=== PATIENT | male | born 1980 | race African-American/Black ===

== ENCOUNTER 2017-06-06 08:08 | Emergency (ER) | payer SELFPAY ==
[2017-06-06 08:10] VITALS: BP 160/98; PULSE 84; RESP 18; TEMP 98.9; O2SAT 99
[2017-06-06] MEDS ORDERED: SULFAMETHOXAZOLE-TRIMETHOPRIM DS 800-160 MG TAB PO ONE (08:30)
[2017-06-06] MEDS ORDERED: ACETAMINOPHEN/HYDROcodone 325 MG/5 MG TAB PO ONE (08:30)
[2017-06-06] MEDS ORDERED: LIDOCAINE HCL 1% 50 ML VIAL INFIL ONE (08:30)
[2017-06-06] MEDS ORDERED: CEPH-460 PO (08:33)
[2017-06-06] MEDS ORDERED: BACT800T5 PO (08:33)
--- NOTE | 2017-06-06 08:33 | PD ---
HPI Chief Complaint: Skin Problem Time Seen by Provider: 08:21 Travel History International Travel<30 days: No Contact w/Intl Traveler<30days: No Traveled to known affect area: No History of Present Illness HPI 36-year-old male presents to the emergency department complaining of multiple abscesses on the bilateral groin and right leg. Patient states that he has had these for approximately 1 week but they have not gone away. Patient states that his pain is moderate to severe and nonradiating. Patient denies fever or chills. Denies history of illicit or IV drug use. Denies chronic medical issues or medication use. Says he has had one abscess previously and does not know why he has these abscesses today. States that he is sexually active. Denies sex worker use. States he is heterosexual and is familiar with his sexual partners. Patient denies penile discharge or urinary discomfort. Denies penile lesions. Denies history of IV drug use. PFSH Social History Tobacco Use: No Allergies-Medications (Allergen,Severity, Reaction): Coded Allergies: No Known Allergies (Unverified , 06/06/17) Reported Meds & Prescriptions Reported Meds & Active Scripts Active Keflex (Cephalexin) 500 Mg Cap 500 Mg PO Q12H 10 Days Bactrim DS (Sulfamethoxazole-Trimethoprim) 800-160 Mg Tab 1 Tab PO BID Review of Systems Except as stated in HPI: all other systems reviewed are Neg Physical Exam Narrative GENERAL: Well-nourished, well-developed patient. SKIN: Focused skin assessment warm/dry. HEAD: Normocephalic. EYES: No scleral icterus. No injection or drainage. NECK: Supple, trachea midline. No JVD or lymphadenopathy. CARDIOVASCULAR: Regular rate and rhythm without murmurs, gallops, or rubs. RESPIRATORY: Breath sounds equal bilaterally. No accessory muscle use. GENITOURINARY: Circumcised. Testes descended bilaterally without evidence of rotation. No lesions or erythema. No urethral discharge. Left posterior leg -Measures about 1 cm in diameter. It is fluctuant but there no drainage. TTP. Area of erythema to surrounding 3 cm. There is a zone of inflammation around it but no lymphangitis. Right groin- 1 cm indurated mass mildly tender to palpation mildly fluctuant. No erythema. No edema., left groin- 2 cm round lesion indurated tender to palpation. No erythema. No edema. MUSCULOSKELETAL: No cyanosis, or edema. BACK: Nontender without obvious deformity. No CVA tenderness. Data Data Last Documented VS Vital Signs Date Time Temp Pulse Resp B/P (MAP) Pulse Ox O2 Delivery O2 Flow Rate FiO2 06/06/17 10:07 100 06/06/17 08:10 98.9 84 18 Orders Orders Acetamin-Hydrocod 325-5 Mg ([place] 5-325 (06/06/17 08:30) Lidocaine 1% Inj (50 Ml) (Xylocaine 1% I (06/06/17 08:30) Sulfamet-Trimeth Ds 800-160 Mg (Bactrim (06/06/17 08:30) Ed Discharge Order (06/06/17 09:44) [facility] Medical Decision Making Medical Screen Exam Complete: Yes Emergency Medical Condition: Yes Differential Diagnosis Abscess, cellulitis, erysipelas Narrative Course 36-year-old male presents to the emergency department complaining of multiple abscesses on the bilateral groin and right leg. Patient states that he has had these for approximately 1 week but they have not gone away. Patient states that his pain is moderate to severe and nonradiating. Patient denies fever or chills. Denies history of illicit or IV drug use. Denies chronic medical issues or medication use. Says he has had one abscess previously and does not know why he has these abscesses today. States that he is sexually active. Denies sex worker use. States he is heterosexual and is familiar with his sexual partners. Patient denies penile discharge or urinary discomfort. Denies penile lesions. Denies history of IV drug use. Vital signs stable Physical exam findings consistent with abscesses of the extremities. Incision and drainage performed today left posterior leg, right groin Antibiotics prescribed. Bactrim and hydrocodone administered in the emergency department today. Wound care discussed. There was consideration of an STI causing his abscesses today. Patient describes a sexual history as fairly responsible so I do not have a strong suspicion of VD. I asked patient to return in 2 days for wound check as he does not have a primary care physician and the lesions are in higher risk areas. In addition, there are 3 of concern. Patient states that he will return and will comply with the regimen. Return to the emergency department for worsening or persistent symptoms. Diagnosis Primary Impression: Abscess Referrals: Primary Care Physician Additional Instructions: Follow up with your primary care physician within 2-3 days. If your symptoms persist or worsen, return to the emergency department. Keep area clean and dry. He may remove the packing in 1-2 days. You may use [id number] triple antibiotic ointments for your wound Change dressings daily. Physical medication as prescribed If he developed increased redness, swelling, or pain return to the emergency department. Scripts Cephalexin (Keflex) 500 Mg Cap 500 MG PO Q12H for Infection for 10 Days, #20 CAP 0 Refills Prov: Rohith Yoon MD 06/06/17 Sulfamethoxazole-Trimethoprim (Bactrim DS) 800-160 Mg Tab 1 TAB PO BID for Infection, #20 TAB 0 Refills Prov: Rohith Yoon MD 06/06/17 Disposition: 01 DISCHARGE HOME Condition: Stable Elma Banerjee Jun 06, 2017 08:33
== END 2017-06-06 10:07 | disposition home or self-care (01) ==
LOC: NEPD 08:08
DX: L02.214 Cutaneous abscess of groin (principal); L02.415 Cutaneous abscess of right lower limb
CPT/HCPCS: 99284

== ENCOUNTER 2017-12-21 02:37 | Inpatient (IN) ==
--- NOTE | 2017-12-21 06:44 | ED ---
HPI General Chief complaint: Weakness Stated complaint: Medical/Evac Time Seen by Provider: 12/21/17 06:41 Source: patient History of Present Illness HPI narrative: The patient is a 37 year old male who presents to the [facility] emergency department with a history of chest pain, shortness of breath, tongue swelling, and bilateral knee pain since accidentally overdosing on Heroin at 4PM yesterday. He reports that his friend did CPR on him. No ambulance was called. He did not get Narcan. He did not go to a hospital. The patient reports feeling poorly since that time. He reports having bilateral knee pain and is unsure why. He denies any known trauma to his knees. He reports that he first used heroin 3 years ago, however he does not use it on a regular basis. He reports that he was having some back pain and that is why he used to yesterday. He reports that normally he has a history of abusing marijuana and cocaine. Related Data Home Medications Medication Instructions Recorded Confirmed No Known Home Medications 12/21/17 12/21/17 Allergies Allergy/AdvReac Type Severity Reaction Status Date / Time No Known Allergies Allergy Unverified 06/06/17 08:26 Review of Systems ROS Unobtainable All other systems reviewed negative except as stated in HPI Constitutional Denies fever(s) Eyes Denies change in vision ENT Denies headache(s) and Denies nasal congestion Cardiovascular Reports chest pain Respiratory Reports cough, Reports dyspnea and Reports dyspnea on exertion Gastrointestinal Denies abdominal pain, Reports diarrhea (x1- 2 days ago) and Reports vomiting ( x3) Genitourinary Denies difficulty urinating Musculoskeletal Denies myalgias Integumentary/Breasts Denies rash Neurologic Denies headache(s) and Reports weakness (generalized) Psychiatric Denies depression and Denies suicidal ideation Endocrine Denies polyuria Hematologic/Lymphatic Denies easy bruising PMFSH Medical History Medical History Medical history unknown (Acute) Surgical history unknown (Acute) No active medical problems (Acute) Surgical History Surgical History H/O knee surgery (Acute) Social History Social History Substance History: Active Abuse Second Hand Smoke Exposure: Yes Smoking Status: Current every day smoker Tobacco Type: Cigarettes Cigarettes Per Day: 7.5 How Often Do You Have a Drink Containing Alcohol: 2 to 4 times a month Substance Abuse Detail Heroin: Substance Use Status: Active Route Used Substance Abuse: Intravenously Immunization History Tetanus Immunization: Unsure Hx Influenza Vaccine This Season: No Exam HENMT Head: normocephalic and atraumatic Nose: no nasal discharge and no epistaxis Mouth: moist mucous membranes Eyes Sclera: normal sclerae Pupils: PERRL Neck Neck: trachea midline and no JVD Resp Effort & Inspection: no use of accessory muscles Auscultation: clear to auscultation bilaterally Cardio Rate: regular rate Rhythm: regular rhythm Heart Sounds: no murmurs GI Inspection: non-distended Palpation: soft, no hepatosplenomegaly and nontender Skin General: dry skin (warm) Neuro General: awake and other (drowsy although easily arousable to voice) Cranial Nerves: CN's II-XI intact bilaterally Speech: speech normal Motor: no movement abnormalities noted Sensory Exam: no sensory deficits noted Extrem General: normal to inspection, no clubbing, no cyanosis and no edema Right upper extremity: normal to inspection Left upper extremity: normal to inspection Right lower extremity: normal to inspection and knee (The patient has decreased range of motion with flexion. No ligament laxity. No crepitus or deformity. No effusion noted.) Details: normal to inspection and abnormal ROM Left lower extremity: normal to inspection and knee (The patient has decreased range of motion with flexion. There is no ligament laxity. No crepitus) Psych Mood: congruent mood Affect: normal affect Judgment: judgment good Course Hospital Course: During the course of the patient's emergency department visit, the patient's history, examination, and differential diagnosis were reviewed with the patient. The patient was placed on a compliance monitor with oximetry and frequent blood pressure monitoring. The patient had IV access obtained and blood work sent for analysis. The patient was initially provided normal saline IV fluids, Toradol 15 mg IV for pain. Initial Documented Vital Signs Temperature 98.4 F 12/21/17 02:44 Pulse Rate 72 12/21/17 02:44 Respiratory Rate 16 12/21/17 02:44 Blood Pressure 142/98 H 12/21/17 02:44 Pulse Oximetry 99 12/21/17 02:44 Last Documented Vital Signs Temperature 97.8 F 12/21/17 09:00 Pulse Rate 86 12/21/17 09:00 Respiratory Rate 17 12/21/17 09:00 Blood Pressure 138/90 12/21/17 09:00 Pulse Oximetry 99 12/21/17 09:00 Sign Out Sign Out Data: Patient Sign Out occurred on 12/21/17 at 07:28. Patient's care was discussed, and care was transferred from Rekha Mir MD to Loy Hooker MD. Sign Out Comment: The patient's case will be checked out to the oncoming emergency physician disposition the patient based on his workup. The patient has pending laboratory studies and imaging studies. Last updated by Rekha Mir MD at 12/21/17 07:27 Post-Handoff Eval: The patient was signed out to me by Dr. Mir at change of shift. Patient presented after he reported overdosing on heroin yesterday. Patient states that CPR was performed. He presents today with complaints of pain all over. Patient states he also feels generally weak. Patient's troponin is elevated. Patient's liver enzymes are also elevated. Elevation of troponins likely secondary to the CPR that was performed on him. Case was discussed with Dr. Bray, [facility] [place] [facility], who agrees with the admission. Patient will be trended. Further disposition will be per Dr. Bray. Medical Decision Making MDM Narrative Medical decision making narrative: The patient's diagnostic workup has been started. The patient's case will be checked out to the oncoming emergency physician to disposition the patient based on the conclusion of his workup. Differential Diagnosis Differential Diagnosis: Rib fracture, versus acute coronary syndrome, versus congestive heart failure, versus muscle strain, versus bacteremia Medical Records Medical records reviewed: Yes I reviewed the patient's medical records. Lab Data Result diagrams: 12/21/17 07:02 12/21/17 07:02 Lab Results 12/21/17 12/21/17 12/21/17 Range/Units 07:02 07:02 07:02 WBC 14.3 H (4.0-11.0) th/mm3 RBC 4.91 (4.50-5.90) mil/mm3 Hgb 15.1 (13.0-17.0) gm/dL Hct 46.2 (39.0-51.0) % MCV 94.2 (80.0-100.0) fL MCH 30.7 (27.0-34.0) pg MCHC 32.6 (32.0-36.0) % RDW 15.4 (11.6-17.2) % Plt Count 310 (150-450) th/mm3 MPV 7.9 (7.0-11.0) fL Neut % (Auto) 70.3 H (16.0-70.0) % Lymph % (Auto) 20.7 (9.0-44.0) % Faulk % (Auto) 7.1 (0.0-8.0) % Eos % (Auto) 1.1 (0.0-4.0) % Baso % (Auto) 0.8 (0.0-2.0) % Neut # (Auto) 10.0 H (1.8-7.7) th/mm3 Lymph # (Auto) 3.0 (1.0-4.8) th/mm3 Faulk # (Auto) 1.0 H (0.0-0.9) th/mm3 Eos # (Auto) 0.2 (0.0-0.4) th/mm3 Baso # (Auto) 0.1 (0.0-0.2) th/mm3 WBC Differential . Differential Comment Auto diff final PT 11.3 (9.8-11.6) sec INR 1.1 Ratio APTT 24.3 (24.3-30.1) sec Sodium 145 (136-145) meq/L Potassium 4.5 (3.5-5.1) meq/L Chloride 114 H (98-107) meq/L Carbon Dioxide 23.5 (21.0-32.0) meq/L Anion Gap 8 (5-15) meq/L BUN 10 (7-18) mg/dL Creatinine 0.98 (0.60-1.30) mg/dL Estimated GFR Greater than 89 (>89) mL/min POC Glucose (68-110) mg/dl Random Glucose 78 (74-106) mg/dL Calcium 7.1 L* (8.5-10.1) mg/dL Prot Corrected Calcium 7.4 L* (8.5-10.1) mg/dL Magnesium 2.0 (1.5-2.5) mg/dL Total Bilirubin 0.4 (0.2-1.0) mg/dL AST 139 H (15-37) U/L ALT 173 H (12-78) U/L Alkaline Phosphatase 52 (45-117) U/L Lactate Dehydrogenase 462 H (87-241) U/L Total Creatine Kinase 177 (39-308) U/L Troponin I 2.54 H* (0.02-0.05) ng/mL B-Natriuretic Peptide (0-100) pg/mL Total Protein 6.6 (6.4-8.2) g/dL Albumin 2.7 L (3.4-5.0) g/dL TSH 1.060 (0.358-3.740) uIU/mL Urine Color (Yellw/Straw) Urine Clarity (Clear) Urine pH (5.0-8.5) Ur Specific [place] (1.002-1.035) Urine Protein (Neg-Trace) mg/dL Urine Glucose (UA) (Negative) mg/dL Urine Ketones (Negative) mg/dL Urine Occult Blood (Negative) Urine Nitrate (Negative) Urine Bilirubin (Negative) Urine Urobilinogen (Less than 2) mg/dL Ur Leukocyte Esterase (Negative) Urine RBC (0-3) /hpf Urine WBC (0-5) /hpf Urine Mucus (Occasional) /lpf Micro UA Comment Urine Culture Comments Acetaminophen (10.0-30.0) mcg/mL Serum Alcohol Less than 3 (0-5) mg/dL 12/21/17 12/21/17 12/21/17 Range/Units 07:02 07:02 07:11 WBC (4.0-11.0) th/mm3 RBC (4.50-5.90) mil/mm3 Hgb (13.0-17.0) gm/dL Hct (39.0-51.0) % MCV (80.0-100.0) fL MCH (27.0-34.0) pg MCHC (32.0-36.0) % RDW (11.6-17.2) % Plt Count (150-450) th/mm3 MPV (7.0-11.0) fL Neut % (Auto) (16.0-70.0) % Lymph % (Auto) (9.0-44.0) % Faulk % (Auto) (0.0-8.0) % Eos % (Auto) (0.0-4.0) % Baso % (Auto) (0.0-2.0) % Neut # (Auto) (1.8-7.7) th/mm3 Lymph # (Auto) (1.0-4.8) th/mm3 Faulk # (Auto) (0.0-0.9) th/mm3 Eos # (Auto) (0.0-0.4) th/mm3 Baso # (Auto) (0.0-0.2) th/mm3 WBC Differential Differential Comment PT (9.8-11.6) sec INR Ratio APTT (24.3-30.1) sec Sodium (136-145) meq/L Potassium (3.5-5.1) meq/L Chloride (98-107) meq/L Carbon Dioxide (21.0-32.0) meq/L Anion Gap (5-15) meq/L BUN (7-18) mg/dL Creatinine (0.60-1.30) mg/dL Estimated GFR (>89) mL/min POC Glucose 86 (68-110) mg/dl Random Glucose (74-106) mg/dL Calcium (8.5-10.1) mg/dL Prot Corrected Calcium (8.5-10.1) mg/dL Magnesium (1.5-2.5) mg/dL Total Bilirubin (0.2-1.0) mg/dL AST (15-37) U/L ALT (12-78) U/L Alkaline Phosphatase (45-117) U/L Lactate Dehydrogenase (87-241) U/L Total Creatine Kinase (39-308) U/L Troponin I (0.02-0.05) ng/mL B-Natriuretic Peptide 27 (0-100) pg/mL Total Protein (6.4-8.2) g/dL Albumin (3.4-5.0) g/dL TSH (0.358-3.740) uIU/mL Urine Color (Yellw/Straw) Urine Clarity (Clear) Urine pH (5.0-8.5) Ur Specific [place] (1.002-1.035) Urine Protein (Neg-Trace) mg/dL Urine Glucose (UA) (Negative) mg/dL Urine Ketones (Negative) mg/dL Urine Occult Blood (Negative) Urine Nitrate (Negative) Urine Bilirubin (Negative) Urine Urobilinogen (Less than 2) mg/dL Ur Leukocyte Esterase (Negative) Urine RBC (0-3) /hpf Urine WBC (0-5) /hpf Urine Mucus (Occasional) /lpf Micro UA Comment Urine Culture Comments Acetaminophen Less than 2.0 L (10.0-30.0) mcg/mL Serum Alcohol (0-5) mg/dL 12/21/17 Range/Units 07:20 WBC (4.0-11.0) th/mm3 RBC (4.50-5.90) mil/mm3 Hgb (13.0-17.0) gm/dL Hct (39.0-51.0) % MCV (80.0-100.0) fL MCH (27.0-34.0) pg MCHC (32.0-36.0) % RDW (11.6-17.2) % Plt Count (150-450) th/mm3 MPV (7.0-11.0) fL Neut % (Auto) (16.0-70.0) % Lymph % (Auto) (9.0-44.0) % Faulk % (Auto) (0.0-8.0) % Eos % (Auto) (0.0-4.0) % Baso % (Auto) (0.0-2.0) % Neut # (Auto) (1.8-7.7) th/mm3 Lymph # (Auto) (1.0-4.8) th/mm3 Faulk # (Auto) (0.0-0.9) th/mm3 Eos # (Auto) (0.0-0.4) th/mm3 Baso # (Auto) (0.0-0.2) th/mm3 WBC Differential Differential Comment PT (9.8-11.6) sec INR Ratio APTT (24.3-30.1) sec Sodium (136-145) meq/L Potassium (3.5-5.1) meq/L Chloride (98-107) meq/L Carbon Dioxide (21.0-32.0) meq/L Anion Gap (5-15) meq/L BUN (7-18) mg/dL Creatinine (0.60-1.30) mg/dL Estimated GFR (>89) mL/min POC Glucose (68-110) mg/dl Random Glucose (74-106) mg/dL Calcium (8.5-10.1) mg/dL Prot Corrected Calcium (8.5-10.1) mg/dL Magnesium (1.5-2.5) mg/dL Total Bilirubin (0.2-1.0) mg/dL AST (15-37) U/L ALT (12-78) U/L Alkaline Phosphatase (45-117) U/L Lactate Dehydrogenase (87-241) U/L Total Creatine Kinase (39-308) U/L Troponin I (0.02-0.05) ng/mL B-Natriuretic Peptide (0-100) pg/mL Total Protein (6.4-8.2) g/dL Albumin (3.4-5.0) g/dL TSH (0.358-3.740) uIU/mL Urine Color Yellow (Yellw/Straw) Urine Clarity Clear (Clear) Urine pH 6.0 (5.0-8.5) Ur Specific [place] 1.018 (1.002-1.035) Urine Protein Negative (Neg-Trace) mg/dL Urine Glucose (UA) Negative (Negative) mg/dL Urine Ketones Negative (Negative) mg/dL Urine Occult Blood Negative (Negative) Urine Nitrate Negative (Negative) Urine Bilirubin Negative (Negative) Urine Urobilinogen 4 or greater (Less than 2) mg/dL Ur Leukocyte Esterase Negative (Negative) Urine RBC 1 (0-3) /hpf Urine WBC 1 (0-5) /hpf Urine Mucus Few H (Occasional) /lpf Micro UA Comment Culture not ind Urine Culture Comments Culture not ind Acetaminophen (10.0-30.0) mcg/mL Serum Alcohol (0-5) mg/dL Imaging Data Radiologist's impression: ITS Impressions Chest X-Ray 12/21/17 07:00 CONCLUSION: Negative examination. Head CT 12/21/17 07:00 CONCLUSION: 1. Negative CT Head non contrast. Knee X-Ray 12/21/17 07:06 CONCLUSION: Negative examination Knee X-Ray 12/21/17 07:06 CONCLUSION: Negative examination Discharge Plan Discharge Disposition Patient Disposition: 30 Still Patient Discharge Details Discharge Problem: Overdose of opiate or related narcotic, Elevated troponin, Elevated liver enzymes, Opiate overdose Physicians Team ED Provider: Loy Hooker Primary Care Provider: Primary Care Zari Whitley Attending Provider: Gil Bray Discharge Interventions Interventions: Vital Signs Last Done: 12/21/17 09:00 Status ED Status: Admitted Observation Patient
[2017-12-21] MEDS ORDERED: Sod Chloride 0.9% Inj 1,000 ML IV.SIG ONE (07:00)
--- NOTE | 2017-12-21 07:21 | XR ---
EXAM DATE: 12/21/2017 7:15 AM EDT AGE/SEX: 37 years / Male INDICATIONS: Chest pain. CLINICAL DATA: This is the patient's initial encounter. Patient reports that signs and symptoms have been present for 2 days and indicates a pain score of 5/10. MEDICAL/SURGICAL HISTORY: None. None. COMPARISON: No prior exams available for comparison. FINDINGS: A single AP view of the chest demonstrates the lungs to be symmetrically aerated without evidence of mass, infiltrate or effusion. The cardiomediastinal contours are unremarkable. Osseous structures a re intact. CONCLUSION: Negative examination. Electronically signed by: Jett Rodriguez MD 12/21/2017 7:20 AM EDT
[2017-12-21 07:41] LABS: Baso # (Auto) 0.1 th/mm3 (0.0-0.2); Baso % (Auto) 0.8 % (0.0-2.0); Eos # (Auto) 0.2 th/mm3 (0.0-0.4); Eos % (Auto) 1.1 % (0.0-4.0); Hematocrit 46.2 % (39.0-51.0); Hemoglobin 15.1 gm/dL (13.0-17.0); Lymph % (Auto) 20.7 % (9.0-44.0); Mean Corpuscular HGB Conc 32.6 % (32.0-36.0); Mean Corpuscular Hemoglobin 30.7 pg (27.0-34.0); Mean Corpuscular Volume 94.2 fL (80.0-100.0); Mean Platelet Volume 7.9 fL (7.0-11.0); Mono % (Auto) 7.1 % (0.0-8.0); Neut % (Auto) 70.3 % (16.0-70.0); Platelet Count 310 th/mm3 (150-450); Red Blood Count 4.91 mil/mm3 (4.50-5.90); Red Cell Distribution Width 15.4 % (11.6-17.2); White Blood Count 14.3 th/mm3 (4.0-11.0)
--- NOTE | 2017-12-21 07:42 | CT ---
EXAM DATE: 12/21/2017 7:35 AM EDT AGE/SEX: 37 years / Male INDICATIONS: Weakness. CLINICAL DATA: This is the patient's initial encounter. Patient reports that signs and symptoms have been present for 1 day and indicates a pain score of 2/10. MEDICAL/SURGICAL HISTORY: None. None. RADIATION DOSE: 56.35 CTDI (mGy) COMPARISON: No prior exams available for comparison. TECHNIQUE: CT of the head without contrast. Using automated exposure control and adjustment of the mA and/or kV according to patient size, radiation dose was kept as low as reasonably achievable to ob tain optimal diagnostic quality images. DICOM format image data is available electronically for revi ew and comparison. FINDINGS: Cerebrum: The ventricles are normal for age. No evidence of midline shift, mass lesion, hemorrhage or acute infarction. No extraaxial fluid collections are seen. Posterior Fossa: The cerebellum and brainstem are intact. The 4th ventricle is midline. The cerebe llopontine angle is unremarkable. Extracranial: The visualized portion of the orbits is intact. Skull: The calvaria is intact. No evidence of skull fracture. CONCLUSION: 1. Negative CT Head non contrast. Electronically signed by: Jett Rodriguez MD 12/21/2017 7:41 AM EDT
[2017-12-21 07:44] LABS: Bilirubin,Urine Negative (Negative); Clarity,Urine Clear (Clear); Color,Urine Yellow (Yellw/Straw); Glucose,Urine (UA) Negative (Negative); Leukocyte Esterase,Urine Negative (Negative); Mucus,Urine Few /lpf (Occasional); Nitrite,Urine Negative (Negative); Specific Gravity,Urine 1.018 (1.002-1.035); Urobilinogen,Urine 4 or Greater mg/dL (Less than 2)
[2017-12-21 07:56] LABS: Activated Partial Thrombo Time 24.3 sec (24.3-30.1); INR 1.1 Ratio; Prothrombin Time 11.3 sec (9.8-11.6)
[2017-12-21 08:11] LABS: Alanine Aminotransferase 173 U/L (12-78); Albumin 2.7 g/dL (3.4-5.0); Alkaline Phosphatase 52 U/L (45-117); Anion Gap 8 meq/L (5-15); Aspartate Aminotransferase 139 U/L (15-37); Blood Urea Nitrogen 10 mg/dL (7-18); Calcium 7.1 mg/dL (8.5-10.1); Carbon Dioxide 23.5 meq/L (21.0-32.0); Chloride 114 meq/L (98-107); Creatine Kinase 177 U/L (39-308); Glomerular Filtration Rate Greater Than 89 mL/min (>89); Glucose,Random 78 mg/dL (74-106); Lactate Dehydrogenase 462 U/L (87-241); Sodium 145 meq/L (136-145); Total Protein 6.6 g/dL (6.4-8.2)
--- NOTE | 2017-12-21 08:19 | XR ---
EXAM DATE: 12/21/2017 7:59 AM EDT AGE/SEX: 37 years / Male INDICATIONS: RIGHT KNEE PAIN. CLINICAL DATA: This is the patient's initial encounter. Patient reports that signs and symptoms have been present for 2 days and indicates a pain score of 9/10. MEDICAL/SURGICAL HISTORY: None. None. COMPARISON: No prior exams available for comparison. FINDINGS: Bony structures are intact and in normal alignment. Joints are intact without dislocation or signifi cant arthropathy. Osseous density is normal. Soft tissues are unremarkable. No radiopaque foreign bodies seen. CONCLUSION: Negative examination Electronically signed by: Temo Conway MD 12/21/2017 8:17 AM EDT
--- NOTE | 2017-12-21 08:19 | XR ---
EXAM DATE: 12/21/2017 8:01 AM EDT AGE/SEX: 37 years / Male INDICATIONS: Left knee pain. CLINICAL DATA: This is the patient's initial encounter. Patient reports that signs and symptoms have been present for 2 days and indicates a pain score of 9/10. MEDICAL/SURGICAL HISTORY: None. None. COMPARISON: No prior exams available for comparison. FINDINGS: Bony structures are intact and in normal alignment. Joints are intact without dislocation or signifi cant arthropathy. Osseous density is normal. Soft tissues are unremarkable. No radiopaque foreign bodies seen. CONCLUSION: Negative examination Electronically signed by: Temo Conway MD 12/21/2017 8:17 AM EDT
[2017-12-21 08:21] LABS: Potassium 4.5 meq/L (3.5-5.1)
[2017-12-21 08:24] LABS: Troponin I 2.54 ng/mL (0.02-0.05)
[2017-12-21] MEDS ORDERED: Temazepam 15 MG Capsule PO PRN (12:48)
[2017-12-21] MEDS ORDERED: Bisacodyl 10 MG Supp RECTAL PRN (12:48)
[2017-12-21] MEDS ORDERED: Naloxone Inj 0.4 MG/ML Vial IV.PUSH PRN (12:54)
[2017-12-21] MEDS ORDERED: LORazepam 1 MG Tablet PO PRN (12:55)
[2017-12-21] MEDS ORDERED: Haloperidol Inj 5 MG/ML Ampul IV.PUSH PRN (12:55)
--- NOTE | 2017-12-21 13:17 | P.HPIM ---
History of Present Illness Service: [facility] Primary Care Physician: No Primary Care Physician Chief Complaint: Generalized weakness History of Present Illness: Patient is a 37-year-old -[place] gentleman who presented to the [place] emergency department with a history of chest pain, shortness of breath and questionable tongue swelling as well as bilateral knee pain since accidentally overdosing on heroin p.m. yesterday. He states that a friend did CPR on him. No ambulance was called at this time. Did not get any Narcan. He did not go to the hospital. Patient reports feeling poorly since that time has bilateral knee pain states he has had some previous abscesses on his knees. Patient has used heroin for about 3 years. States he does not use it on a regular basis. States he uses the heroin for back pain and knee pain. He states he does not have a regular doctor. Is also using marijuana and cocaine Was found to have positive troponins and therefore will be admitted for cardiology clearance which is more than likely secondary to his cocaine and heroin possible CPR. Inpatient Certification: I certify that the inpatient services were ordered in accordance with Medicare regulations governing the order. This includes certification that hospital inpatient services are reasonable and necessary and in the case of services not specified as inpatient-only under 42 CFR 419.22(n), that they are appropriately provided as inpatient services in accordance to with the 2-midnight benchmark under 43 CFR 412.3(e) Estimated Total Length of Stay (Days): 2 Plans for Post Hospital Care: Not yet determined Review of Systems All other systems reviewed negative except as stated in HPI Constitutional: Reports body ache(s), Reports fatigue, Reports malaise, Denies anorexia, Denies fever(s), Denies night sweats Eyes: Denies blind spots, Denies blurry vision, Denies discharge, Denies dry eyes, Denies pain, Denies requires corrective lenses Ears, Nose, Mouth, and Throat: Denies abnormal hearing, Denies dental pain, Denies ear pain, Denies lip swelling, Denies nasal discharge, Denies nose pain, Denies ringing in the ears Cardiovascular: Reports chest pain, Denies excessive sweating, Denies generalized swelling, Denies leg sores, Denies rapid, pounding, or irregular heartbeat, Denies shortness of breath with activity, Denies shortness of breath causing sudden awakening Respiratory: Denies change in phlegm color, Denies excessive phlegm production, Denies shortness of breath, Denies wheezing Gastrointestinal: Denies abdominal pain, Denies bright, red blood in stools, Denies constant urge to pass stool, Denies constipation, Denies feeling full early, Denies pain with swallowing Musculoskeletal: Reports joint pain, Denies abnormal walking, Denies loss of height, Denies radiating pain into limb Skin/Breast: Denies acne, Denies breast pain, Denies change in skin color Neurologic: Denies abnormal hearing, Denies abnormal walking, Denies dizziness, Denies localized weakness, Denies other visual disturbances, Denies seizure- like activity Psychiatric: Denies abnormal sleep pattern, Denies change in sex drive, Denies hearing things others do not hear, Denies lack of enjoyment, Denies seeing things others do not see Endocrine: Denies cold intolerance, Denies increased hunger, Denies rapid, pounding, or irregular heartbeat Hematologic/Lymphatic: Denies easy bleeding, Denies easy bruising, Denies enlarged lymph nodes Allergic/Immunologic: Denies GI upset with certain foods, Denies seasonal runny nose PMFSH - History History Provided By: Patient - Medical History Medical History: Medical History (Last Updated 12/21/17 @ 06:58 by Rekha Mir MD) Medical history unknown Surgical history unknown No active medical problems - Surgical History Surgical History: Surgical History (Last Updated 12/21/17 @ 13:10 by Gil Bray DO) H/O knee surgery (Acute) - Tobacco History Second Hand Smoke Exposure: Yes Tobacco Use In Past 30 Days: Yes Smoking Status: Current every day smoker Tobacco Type: Cigarettes Cigarettes Per Day: 7.5 - Alcohol History How Often Do You Have a Drink Containing Alcohol: 2 to 4 times a month - Substance Use History Substance History: Active Abuse - Substance Use Type Heroin Status: Active Route Used: Intravenously Crack/Cocaine Status: Active Reason for Use: Feels Good Marijuana Status: Active Route Used: Inhalation Reason for Use: Feels Good - Travel History History of Recent Travel: No Recent Travel in the [place] Within the Last 8 Weeks: No Recent Travel Out of the Country Within the Last 8 Weeks: No - Immunization History Tetanus Immunization: Unsure Hx Influenza Vaccine This Season: No Medications and Allergies Active Medications: Active Medications Al Hydroxide/Mg Hydroxide (Milk Of Magnlexie Liq) 30 ml PO Q12H PRN PRN Reason: Mild Constipation Bisacodyl (Dulcolax Supp) 10 mg RECTAL DAILY PRN PRN Reason: SEVERE CONSITIPATION Clonidine HCl (Catapres) 0.1 mg PO Q6H PRN PRN Reason: For SBP >/= 180, DBP >/= 100 Enoxaparin Sodium (Lovenox Inj) 70 mg SQ Q12HR ADRIEN Famotidine (Pepcid) 20 mg PO BID ADRIEN Flumazenil (Romazecon Inj) 0.2 mg IV.PUSH Q1M PRN PRN Reason: OVERSEDATION Folic Acid (Folic Acid) 1 mg PO DAILY [facility] Stop: 12/26/17 12:59 Haloperidol Lactate (Haldol Inj) 1 mg IV.PUSH Q15M PRN PRN Reason: for severe agitation Sodium Chloride (Ns Inj) 1,000 mls @ 100 mls/hr IV.CONT .Q10H ADRIEN Lactulose (Lactulose Liq) 30 ml PO DAILY PRN PRN Reason: SEVERE CONSITIPATION Lorazepam (Ativan) 1 mg PO Q4H PRN PRN Reason: for CIWA 8-10 Lorazepam (Ativan) 2 mg PO Q2H PRN PRN Reason: for CIWA 11-14 Lorazepam (Ativan Inj) 2 mg IV.PUSH Q2H PRN PRN Reason: for CIWA 11-14 Lorazepam (Ativan Inj) 2 mg IV.PUSH Q1H PRN PRN Reason: for CIWA 15-20 Lorazepam (Ativan Inj) 2 mg IV.PUSH Q15M PRN PRN Reason: for CIWA > 20 Lorazepam (Ativan Inj) 1 mg IV.PUSH Q4H PRN PRN Reason: for CIWA 8-10 Metoclopramide HCl (Reglan Inj) 5 mg IV.PUSH Q6HR PRN; Protocol PRN Reason: NAUSEA OR VOMITING Morphine Sulfate (Morphine Inj) 2 mg IV.PUSH Q3H PRN PRN Reason: BREAKTHROUGH PAIN Multivitamins/Minerals (Theragran-M) 1 tab PO DAILY [facility] Stop: 12/26/17 12:59 Naloxone HCl (Narcan Inj) 0.4 mg IV.PUSH UNSCH PRN PRN Reason: SEE LABEL COMMENTS Senna/Docusate Sodium (Randa-Colace) 1 tab PO BID [facility] Sennosides (Senokot) 17.2 mg PO Q12H PRN PRN Reason: Moderate Constipation Sodium Chloride (Ns Flush) 2 ml IV.FLUSH PRN PRN PRN Reason: FLUSH AFTER USING IV ACCESS Last Admin: 12/21/17 07:15 Dose: 2 ml Temazepam (Restoril) 15 mg PO HS PRN PRN Reason: INSOMNIA Thiamine HCl (Vitamin B1) 100 mg PO DAILY [facility] Tramadol HCl (Ultram) 50 mg PO Q4H PRN PRN Reason: PAIN SCALE 3 TO 5 Tramadol HCl (Ultram) 100 mg PO Q4H PRN PRN Reason: PAIN SCALE 6 TO 10 Allergies Allergy/AdvReac Type Severity Reaction Status Date / Time No Known Allergies Allergy Unverified 06/06/17 08:26 Home Medications Medication Instructions Recorded Confirmed Type No Known Home Medications 12/21/17 12/21/17 History Exam Vital signs: Vital Signs 12/21/17 02:44 12/21/17 06:15 12/21/17 07:00 Temperature 98.4 F Pulse Rate 72 52 L Respiratory Rate 16 20 Blood Pressure 142/98 H 154/83 H Pulse Oximetry 99 100 99 12/21/17 07:15 12/21/17 09:00 12/21/17 11:00 Temperature 97.8 F 97.8 F 97.8 F Pulse Rate 58 L 86 84 Respiratory Rate 16 17 17 Blood Pressure 150/100 H 138/90 135/88 Pulse Oximetry 99 99 99 Intake & Output 12/20/17 12/21/17 12/21/17 18:59 06:59 18:59 Intake Total 1000 / 1000 Output Total 600 / 600 Balance 400 / 400 Weight 70 kg Intake: IV 1000 / 1000 NS Inj 1,000 ML @ Wide Open IV. 1000 / 1000 SIG BOLUS ONE Rx#:[id number] Output: Urine 600 / 600 Other: # Voids 1 Narrative: GENERAL: Awake alert and oriented 3 talkative and cooperative SKIN: Warm and dry. HEAD: Atraumatic. Normocephalic. EYES: Pupils equal and round. No scleral icterus. No injection or drainage. ENT: No nasal bleeding or discharge. Mucous membranes pink and moist. NECK: Trachea midline. No JVD. CARDIOVASCULAR: Regular rate and rhythm. S1-S2 no S3 or S4 RESPIRATORY: No accessory muscle use. Clear to auscultation. Breath sounds equal bilaterally. GASTROINTESTINAL: Abdomen soft, non-tender, nondistended. Hepatic and splenic margins not palpable. MUSCULOSKELETAL: Extremities without clubbing, cyanosis, or edema. No obvious deformities. NEUROLOGICAL: Awake and alert. No obvious cranial nerve deficits. Motor grossly within normal limits. Five out of 5 muscle strength in the arms and legs. Normal speech. PSYCHIATRIC: Appropriate mood and affect; insight and judgment normal. Results - Labs CBC & Chem 7: 12/21/17 07:02 12/21/17 07:02 Labs: Short CBC 12/21/17 Range/Units 07:02 WBC 14.3 H (4.0-11.0) th/mm3 Hgb 15.1 (13.0-17.0) gm/dL Hct 46.2 (39.0-51.0) % Plt Count 310 (150-450) th/mm3 BMP 12/21/17 07:02 Sodium 145 Potassium 4.5 Chloride 114 H Carbon Dioxide 23.5 BUN 10 Creatinine 0.98 Calcium 7.1 L* Cardiac Enzymes 12/21/17 Range/Units 07:02 Total Creatine Kinase 177 (39-308) U/L Troponin I 2.54 H* (0.02-0.05) ng/mL Liver Function 12/21/17 Range/Units 07:02 Total Bilirubin 0.4 (0.2-1.0) mg/dL AST 139 H (15-37) U/L ALT 173 H (12-78) U/L Alkaline Phosphatase 52 (45-117) U/L Albumin 2.7 L (3.4-5.0) g/dL Urine 12/21/17 Range/Units 07:20 Urine Color Yellow (Yellw/Straw) Urine Clarity Clear (Clear) Urine pH 6.0 (5.0-8.5) Ur Specific [place] 1.018 (1.002-1.035) Urine Protein Negative (Neg-Trace) mg/dL Urine Glucose (UA) Negative (Negative) mg/dL - Imaging Impressions Chest X-Ray 12/21/17 07:00 CONCLUSION: Negative examination. Head CT 12/21/17 07:00 CONCLUSION: 1. Negative CT Head non contrast. Knee X-Ray 12/21/17 07:06 CONCLUSION: Negative examination Knee X-Ray 12/21/17 07:06 CONCLUSION: Negative examination Caprini VTE Risk Assessment Caprini VTE Risk Assessment: No/Low Risk (score <= 1) Caprini Risk Assessment Model: Point Value = 1 Point Value = 2 Point Value = 3 Point Value = 5 Age 41-60 Minor surgery BMI > 25 kg/m2 Swollen legs Varicose veins or History of unexplained or recurrent spontaneous Oral contraceptives or hormone replacement Sepsis (< 1 month) Serious lung disease, including pneumonia (< 1 month) Abnormal pulmonary function Acute myocardial infarction Congestive heart failure (< 1 month) History of inflammatory bowel disease Medical patient at bed rest Age 61-74 Arthroscopic surgery Major open surgery (> 45 min) Laparoscopic surgery (> 45 min) Malignancy Confined to bed (> 72 hours) Immobilizing plaster cast Central venous access Age >= 75 History of VTE Family history of VTE Factor V Leiden Prothrombin 40054M Lupus anticoagulant Anticardiolipin antibodies Elevated serum homocysteine Heparin-induced thrombocytopenia Other congenital or acquired thrombophilia Stroke (< 1 month) Elective arthroplasty Hip, pelvis, or leg fracture Acute spinal cord injury (< 1 month) Prophylaxis Regimen: Total Risk Factor Score Risk Level Prophylaxis Regimen 0-1 Low Early ambulation 2 Moderate Order ONE of the following: *Sequential Compression Device (SCD) *Heparin 5000 units SQ BID 3-4 Higher Order ONE of the following medications: *Heparin 5000 units SQ TID *Enoxaparin/Lovenox 40 mg SQ daily (WT < 150 kg, CrCl > 30 mL/min) *Enoxaparin/Lovenox 30 mg SQ daily (WT < 150 kg, CrCl > 10-29 mL/min) *Enoxaparin/Lovenox 30 mg SQ BID (WT < 150 kg, CrCl > 30 mL/min) AND/OR *Sequential Compression Device (SCD) 5 or more Highest Order ONE of the following medications: *Heparin 5000 units SQ TID (Preferred with Epidurals) *Enoxaparin/Lovenox 40 mg SQ daily (WT < 150 kg, CrCl > 30 mL/min) *Enoxaparin/Lovenox 30 mg SQ daily (WT < 150 kg, CrCl > 10-29 mL/min) *Enoxaparin/Lovenox 30 mg SQ BID (WT < 150 kg, CrCl > 30 mL/min) AND *Sequential Compression Device (SCD) Assessment and Plan - Plan Positive troponins suspect secondary to cocaine and heroin use and possible CPR Elevated LFTs suspect hepatitis C versus secondary to drug use Medical noncompliance Tobacco abuse recommend smoking cessation Marijuana abuse recommend marijuana cessation Cocaine abuse recommend smoking cessation Heroin abuse recommend heroin cessation Recommend that patient seek employment and find something to keep him busy other than drugs We will trend troponins and cardiac enzymes We will consult cardiology for their opinion We will get an echocardiogram We will get a.m. labs We will continue on multivitamin, thiamine, folic acid as well as get a.m. labs and trend troponins and cardiac enzymes and trend hepatitis panel We will continue on GI prophylaxis with Pepcid and continue on DVT prophylaxis with Lovenox full dose 70 mg subcu twice daily Hopefully will be eligible for discharge within the next 24-48 hours or may leave AGAINST MEDICAL ADVICE Code Status: Full code Discussed Condition With: RN and patient and emergency room physician Discharge Planning: Hopefully home and hopefully to stop all illegal drugs and seek employment
[2017-12-21 13:37] LABS: Amphetamine Screen,Urine Neg (Neg); Barbiturate Screen,Urine Neg (Neg); Cannabinoid Screen,Urine Pos (Neg); Cocaine Screen,Urine Pos (Neg)
[2017-12-21 13:55] LABS: Opiate Screen,Urine Neg (Neg)
[2017-12-21] MEDS ORDERED: Morphine Sulfate Inj 2 MG/ML Vial IV.PUSH PRN (14:00)
[2017-12-21 15:00] LABS: Troponin I 2.59 ng/mL (0.02-0.05)
--- NOTE | 2017-12-21 15:07 | ECG ---
Date Performed: 12/21/2017 Time Performed: 07:18:08 PTAGE: 37 years EKG: SINUS BRADYCARDIA WITH SHORT DC INTERVAL POSSIBLE RIGHT VENTRICULAR CONDUCTION DELAY MODERA TE VOLTAGE CRITERIA FOR LVH, CONSIDER NORMAL VARIANT BORDERLINE ECG INTERPRETATION BASED ON A DEFAULT AGE OF 40 YEARS NO PREVIOUS TRACING DOCTOR: Randall Galvan Interpretating Date/Time 12/21/2017 15:06:18
[2017-12-21] MEDS: Sod Chloride 0.9% Inj 1,000 ML IV.CONT SCH (15:48)
[2017-12-21] MEDS: Folic Acid 1 MG Tablet PO SCH (15:49)
[2017-12-21] MEDS: Multivitamin/Minerals Therapeutic Tablet PO SCH (15:49)
[2017-12-21] MEDS: Famotidine 20 MG Tablet PO SCH ×2 (15:50→21:33)
[2017-12-21] MEDS: Enoxaparin Inj 80 MG/0.8 ML Syringe SQ SCH ×2 (15:52→21:33)
[2017-12-21] MEDS ORDERED: Heparin/NS PF Inj 1,500 ML ONE (16:03)
[2017-12-21] MEDS ORDERED: Heparin 10,000 UNITS/10 ML Vial (for IV use) ONE (16:03)
[2017-12-21] MEDS ORDERED: Lidocaine PF 1% Inj 30 ML Vial ONE (16:06)
--- NOTE | 2017-12-21 16:12 | ECHRPT ---
Indication: HYPERTENSIVE HEART DISEASE CONCLUSIONS The left ventricular systolic function is low normal with an estimated ejection fraction in the rang e of 50- 55%. Trace mitral valve regurgitation. There is mild tricuspid valve regurgitation. BP: / HR: Rhythm: Sinus MEASUREMENTS (Male / Female) Normal Values Technical Quality:Fair 2D ECHO LV Diastolic Diameter PLAX 4.7 cm 4.2 - 5.9 / 3.9 - 5.3 cm LV Systolic Diameter PLAX 3.5 cm IVS Diastolic Thickness 0.9 cm 0.6 - 1.0 / 0.6 - 0.9 cm LVPW Diastolic Thickness 0.9 cm 0.6 - 1.0 / 0.6 - 0.9 cm LV Relative Wall Thickness 0.4 RV Internal Dim ED PLAX 2.2 cm LVOT Diameter 2.0 cm Aortic Root Diameter 3.0 cm LA Systolic Diameter LX 2.6 cm 3.0 - 4.0 / 2.7 - 3.8 cm M-MODE AV Cusp Separation MM 1.9 cm DOPPLER AV Peak Velocity 108.0 cm/s AV Peak Gradient 4.7 mmHg AV Mean Gradient 3.0 mmHg AV Velocity Time Integral 19.7 cm LVOT Peak Velocity 53.4 cm/s LVOT Peak Gradient 1.1 mmHg LVOT Velocity Time Integral 10.7 cm AV Area Cont Eq vti 1.7 cm AV Area Cont Eq pk 1.6 cm Mitral E Point Velocity 80.5 cm/s Mitral A Point Velocity 62.2 cm/s Mitral E to A Ratio 1.3 LV E' Lateral Velocity 9.6 cm/s Mitral E to LV E' Lateral Ratio 8.4 LV E' Septal Velocity 7.5 cm/s Mitral E to LV E' Septal Ratio 10.7 TR Peak Velocity 205.0 cm/s TR Peak Gradient 16.8 mmHg Right Atrial Pressure 10.0 mmHg Pulmonary Artery Systolic Pressu 26.8 mmHg Right Ventricular Systolic Press 26.8 mmHg PV Peak Velocity 57.1 cm/s PV Peak Gradient 1.3 mmHg FINDINGS LEFT VENTRICLE Normal left ventricular size. Wall thickness is normal. The left ventricular systolic function is low normal with an estimated ejection fraction in the rang e of 50- 55%. RIGHT VENTRICLE Normal right ventricular size and systolic function. LEFT ATRIUM The left atrial size is normal. RIGHT ATRIUM The right atrial size is normal. ATRIAL SEPTUM Normal atrial septal thickness. AORTA The aortic root and proximal ascending aorta are normal in size on limited imaging. MITRAL VALVE Grossly normal mitral valve Trace mitral valve regurgitation. No mitral valve stenosis. AORTIC VALVE Probable trileaflet aortic valve. No aortic valve stenosis or regurgitation. TRICUSPID VALVE There is mild tricuspid valve regurgitation. The estimated pulmonary arterial pressure is 26.8 mmHg. PULMONARY VALVE No pulmonary valve regurgitation or stenosis. VESSELS The inferior vena cava is normal in size. PERICARDIUM No pericardial effusion. Alex Currie DO (Electronically Signed) Final Date:21 December 2017 16:11
[2017-12-21 16:50] LABS: Hepatitis A IgM Antibody Nonreactive (Nonreactive); Hepatitits B Surface Antigen Nonreactive (Nonreactive)
--- NOTE | 2017-12-21 16:57 | CATHPROC ---
[employer] HIS Report Study Information Study Number Admission Scheduled Start Study Start [id number] Dec 21 2017 12:48PM 12/21/2017 Dec 21 2017 4:03PM [place] [facility] Cath Endovascular Study Admit Source Facility Department Emergency department [facility] - User Experience Manager Physician and Clinical Staff Initial Alex Valiente Distillery Worker Generallatanya Knox RN, Winston Boyle,NARESH Recorder Klaudia Ferrara ,RT(R) Keely Henson,RT(R) (BS) Procedures Performed Procedure Location (Site) Vessel Name Coronary Angiograms LCA Left Coronary Coronary Angiograms RCA Right Coronary L Heart Cath Wire insertion Radial (right) Radial Art. Equipment Time Assurance Engineer Description Size Mfg Part Number Used/Scraped TRANSDUCER, TROpenDoors.suAVE [id number] 16:06 [employer] MATA * Used W/STOCKCOCK *[id number] *[id number] 16:06 [employer] BLANKET,WARM AIR CCL * Used *[id number] 16:06 [employer] PACK, CCL CUSTOM * Used *[id number] 16:06 [employer] SUPPORT, ARTERIAL ADULT 40563 *[id number] Used [id number] 16:25 MED[employer] JL 3.5 DXTERITY CATHETER FR 5 Used *[id number] BAND, RADIAL COMPRESSION TR [id number] 16:47 [employer] MEDICAL 24CM Used SHORT 24 *[id number] 16:06 Whi WIRE, EXCHANGE 260CM 3MMJ 260CM Used *[id number] 16:06 NAMIC MANIFOLD, 4 PORT * Used *[id number] 16:06 NYCOMED OMNIPAQUE, 350 MG, 150ML 150ML [id number] Used SHEATH, FR6 TRANSRADIAL RM*[id number] 16:06 [employer] MEDICAL FR 6 Used SLENDER 10CM *[id number] History: Allergies Allergy Reaction No Known Allergies History: Risk Factors Family History of Hypertension Dyslipidemia Previous [place] Previous Heart Failure Premature CAD No No Yes No No Prior Valve Prior PCI Prior CABG Surgery No No No Cerebrovascular Peripheral Artery Chronic Lung On Dialysis Diabetes Disease Disease Disease No No No No No History: Stress Tests Stress or Imaging Studies Performed No History: Other Current Smoker Method Packs a Day Years Used Pack Years Yes Cigarettes 1 8 8 Labs Hgb (g/dl) Hct (%) WBC (l/cumm) Platelets (thousands) 11.60-17.00 35.00-51.00 4.00-11.00 150.00-450.00 15.1 46.2 14.3 310 Glucose (mg/dl) BUN (mg/dl) Creatinine (mg/dl) BUN:Creatinine (1:x) 74.00-106.00 7.00-18.00 0.50-1.30 10.00-20.00 78 10 0.9 11.1 Na (meq/l) K (meq/l) 136.00-145.00 3.50-5.10 145 4.5 INR (PTT:PT) 0.90-1.10 1.1 Troponin I (ng/ml) CPK-MB (ng/ML) 0.02-0.05 0.50-3.60 2.5 Not Drawn Medication Medication Total Dose (Bolus/Oral) Medication Total Dosage/Unit 1% XYLOCAINE 5 mL RADIAL COCKTAIL 5 mL (Bolus) VERSED 1 mg Medications (Bolus/Oral) Medication Time Given Dosage/Unit Administered By Reason VERSED 12/21/2017 4:31:38 PM 1 mg Winston Gomez 1 mg VERSED given in lab by Winston Gomez, NARESH via Peripheral IV. Ordered by Alex Currie 1% XYLOCAINE 12/21/2017 4:32:28 PM 5 mL Alex Currie 5 mL 1% XYLOCAINE given in lab by Alex Currie in Right Radial via Subcutaneous. Ordered by Alex Mckeon Ntg 200mcg Verapamil 2.5mg Heparin RADIAL COCKTAIL 12/21/2017 4:35:00 PM 5 mL (Bolus) Alex Currie 3000U 5 mL (Bolus) RADIAL COCKTAIL given in lab by Winston Gomez, NARESH via Radial. Using [Solution Name]. Or dered by Alex Currie Reason: Ntg 200mcg Heparin 2600U. Medication (Drip) Medication Time Given Dosage/Unit Concentration/Unit Diluent (ml) Solution IV Solutions 12/21/2017 4:11:37 PM 50 mL (IV) NaCl .9 Patient arrived on IV Solutions via Peripheral IV. Pump/Drip Flow using NaCl .9. Initial Case Assessment Cardiovascular HR NIBP Chest Pain 59 162/110 0 Edema Present Skin color Skin None Normal Warm Dry Circulatory - Right Pulses Dorsalis Pedis Femoral Radial 2 2 2 Scale (0,1,2,3,4,d) Circulatory - Left Pulses Dorsalis Pedis Femoral Radial 2 2 Scale (0,1,2,3,4,d) Neurological State Oriented to time-place- Alert Moves all extremities person Respiration - General Respiration Rate SpO2 (%) (B/min) 27 100 Final Case Assessment Cardiovascular HR NIBP Chest Pain 59 162/110 0 Edema Present Skin color Skin None Normal Warm Dry Circulatory - Right Pulses Dorsalis Pedis Femoral Radial 2 2 2 Scale (0,1,2,3,4,d) Circulatory - Left Pulses Dorsalis Pedis Femoral Radial 2 2 Scale (0,1,2,3,4,d) Neurological State Oriented to time-place- Alert Moves all extremities person Respiration - General Respiration Rate SpO2 (%) (B/min) 27 100 Chronological Log Time Study Chronological Log 16:10:39 Patient arrived via Bed. 16:10:40 Patient Name, D.O.B, / Armband Verified By R.N. 16:11:19 Consent signed by the physician and the patient and verified by the User Experience Manager staff. 16:11:20 Pre-op and post- op instructions given; patient acknowledges understanding of instructions. 16:11:22 Verbal Stimulation=2 Physical Stimulation=2 Airway=2 Respiration=2 TOTAL=8. (0=absent, 1=li mited, 2=present) 16:11:25 Allens test performed on the right radial and ulnar artery. 16:11:29 Skin Breakdown- none per patient 16:11:32 Patient Warmer Placed on the Table. 16:11:33 Melly Prominences Protected 16:11:35 A # 18 IV was noted in the Antecubital (left). Grade = 0 16:11:37 Patient arrived on IV Solutions via Peripheral IV. Pump/Drip Flow using NaCl .9. Assessment: Initial Case, HR=59 BPM, FIIO=419/110 mmhg, Chest Pain=0, Edema=None, Color=Normal, Skin = Warm, Dry Right Pulses: Tor Ped=2, Femoral=2, Radial=2 16:11:44 Left Pulses: Tor Ped=2, Femoral=2 Neurological: State=Alert, Ox3, JUSTIN Respiration: Resp=27 B/min, SoV4=279 % Vitals capture started with the following parameters, Patient=Adult, Interval=5 min, Initial Pr qxwbol=708 mmHg, 16:19:07 Deflation Rate=5 mmHg, Cuff placed on Right Arm 16:19:44 HR=61 bpm, SYOA=706/110 mmhg, XgW9=624.0 %, Resp=25 B/min 16:20:10 Reference ECG taken 16:24:47 HR=61 bpm, MSNM=366/107 mmhg, EaY8=580.0 %, Resp=10 B/min, Pain=0, Funmilayo=10, Gallardo=2 16:26:41 Right Radial and right groin prepped with 2% chlorhexidine, and draped after a 3 min. waiti ng time. 16:26:57 MD arrived. 16:28:57 Pressure channel 1 zeroed. 16:29:49 HR=61 bpm, RUKE=571/106 mmhg, VqU5=057.0 %, Resp=13 B/min Time Out. Correct patient, correct procedure, correct physician, labs, allergies, and equipment verified with earthmoving labourer 16:31:13 team present. Fire risk assesment completed (see hard stop sheet for coding). Time Out Conc urred by MD and individual staff in procedure. 16:31:38 1 mg VERSED given in lab by Winston Gomez, NARESH via Peripheral IV. Ordered by Luis Currie 16:32:27 Case Start 5 mL 1% XYLOCAINE given in lab by Alex Currie in Right Radial via Subcutaneous. Ordered by Kush 16:32:28 Alex Bolden 16:33:29 Access site was Right Radial Artery. 16:33:37 A wire was inserted via Radial (right). A SHEATH, FR6 TRANSRADIAL SLENDER 10CM FR 6 was advanced into the Radial (right) using the Perc utaneous 16:34:28 technique. 16:34:45 HR=65 bpm, GBOX=383/98 mmhg, JnY3=774.0 %, Resp=21 B/min 5 mL (Bolus) RADIAL COCKTAIL given in lab by Winston Gomez, RN via Radial. Using [Solution Nam e]. Ordered by 16:35:00 Alex Currie Reason: Ntg 200mcg Heparin 2600U. A JR 4.0 INFINITI CATHETER FR 5 was advanced over a wire. OMNIPAQUE, 350 MG, 150ML 150ML was us ed for 16:35:28 injections. Recorded Pressure: LV, HR=76, Condition=Condition 1 16:36:22 (Left Ventricle) LV 137/2/12 Recorded Pressure: LV, Ao, HR=68, Condition=Condition 1 16:36:34 (Left Ventricle) LV 142/0/10, (Aorta) Ao 137/87/113 16:36:52 The RCA was injected and visualized at various angles. OMNIPAQUE, 350 MG, 150ML 150ML used . Recorded Pressure: Ao, HR=78, Condition=Condition 1 16:38:01 (Aorta) Ao 138/93/113 16:39:47 HR=66 bpm, MIUX=366/94 mmhg, SpO2=99.0 %, Resp=12 B/min, Pain=0, Funmilayo=10, Gallardo=2 After removing the current catheter a JL 3.5 DXTERITY CATHETER FR 5 was advanced over a WIRE, E XCHANGE 260CM 16:43:41 3MMJ 260CM. 16:44:46 HR=62 bpm, JVEE=228/94 mmhg, SpO2=97.0 %, Resp=10 B/min, Pain=0, Funmilayo=10, Gallardo=2 16:46:22 The LCA was injected and visualized at various angles. OMNIPAQUE, 350 MG, 150ML 150ML used . 16:47:03 Catheter was removed 16:47:26 Case End (Physician broke scrub) Assessment: Final Case, HR=59 BPM, DESA=993/110 mmhg, Chest Pain=0, Edema=None, Color=Normal, S kin = Warm, Dry Right Pulses: Tor Ped=2, Femoral=2, Radial=2 16:47:35 Left Pulses: Tor Ped=2, Femoral=2 Neurological: State=Alert, Ox3, JUSTIN Respiration: Resp=27 B/min, WaO6=737 % 16:47:42 Catheter(s) removed without difficulty Radial Compression Device Used. 12 mLs of air placed in BAND, RADIAL COMPRESSION TR SHORT 24 24 CM. Affected 16:47:43 hand 96 % O2 saturation. 16:47:50 Sterile dressing applied to site 16:47:51 No case complications noted. 16:47:52 Cine recording checked. 16:47:53 Bedside Report will be given. 16:48:02 A Left Heart Cath was performed. 16:49:47 HR=57 bpm, FZXB=541/110 mmhg, DeB6=618.0 %, Resp=14 B/min, Pain=0, Funmilayo=10, Gallardo=2 16:51:51 Vitals capture stopped. 16:53:38 Patient moved to stretcher End Study - Contrast Media Used In Study Contrast Total Opened (mL) Total Used (mL) Total Wasted (mL) Omnipaque 70 70 0 End Study - Maximum Contrast Load Max Contrast Load (mL) 358.6 End Study - Radiation Exposure Fluoro Time (minutes) 4.8 End Study - Sheaths Sheaths Pulled By Sheath Hold Time (min) Keely Montelongo End Study - Patient Disposition Complications Transferred To Interventional Outcome No Telemetry Bed No attempt made
[2017-12-21] MEDS ORDERED: Iohexol 350 MG/ML 50 ML Vial (for Cath Lab) IVCONTRAST ONE (17:16)
--- NOTE | 2017-12-21 17:37 | MA ---
cc: Alex Currie DO DATE: 12/21/2017 DATE OF PROCEDURE: 12/21/2017. PROCEDURE: Left heart catheterization, coronary angiogram, moderate sedation 15 minutes. PREPROCEDURE DIAGNOSIS: Chest pain, non-ST elevation myocardial infarction, overdose on heroin, history of cocaine use. POSTPROCEDURE DIAGNOSES: Mild coronary artery disease, type 2 [id number] myocardial infarction. MEDICATIONS: Versed 1 mg, nitro 200 mcg, heparin 2600 units. CONTRAST USED: 70 mL. FLUOROSCOPY: 4.8 minutes. MODERATE SEDATION: 15 minutes. FRAILTY SCORE: 2. ESTIMATED BLOOD LOSS: 10 mL. PROCEDURAL SUMMARY: Beltran Judge is a 37-year-old male who presented to [facility] 1 day overdosing on heroin. Apparently, he took heroin due to pain to the point where he overdosed. His friend did CPR. He did not come to the hospital. He has not felt well since then and so he presented to [facility] today. He was found to have an elevated troponin at 2.4 and a second troponin was still elevated at 2.9. As this was significant elevation of troponin for a 37-year-old, I felt that coronary artery disease needed to be ruled out. Specifically, with his history of cocaine use, which can accelerate coronary artery disease. The risks, benefits and alternatives were explained to him and he consented as such. He was brought to the lab and prepped in the usual sterile fashion. The right radial artery was accessed using a modified Seldinger technique and placement of a 5/6 Kiswahili Slender Sheath. This is easily aspirated and flushed. A JR4 was advanced over a J-wire to the ascending aorta and across the aortic valve for measurement of left ventricular pressure. This was pulled back across the aortic valve showing no significant gradient of aortic stenosis. JR4 was used for selective angiography of the right coronary artery system. This is exchanged out for a JL3.5, which was used for selective angiography of the left coronary artery system. The JL3.5 was removed over a J wire. A radial band was placed over the arteriotomy site for hemostasis. The patient left the laboratory supervisor cardiovascularly stable. FINDINGS: LEFT MAIN: A large vessel with a superior takeoff. No significant disease. It trifurcates into an LAD, ramus and circumflex. LAD: Moderate to large vessel with mild luminal irregularities throughout the proximal and mid-portion. It supplies two major diagonals with no significant disease. RAMUS: Moderate-sized vessel with no significant disease. It bifurcates into an upper and lower branch. LEFT CIRCUMFLEX: Moderate-sized vessel with mild luminal irregularities in the proximal portion. Distally it supplies two obtuse marginals with no significant disease. RCA: High anterior takeoff. Moderate-sized vessel. No significant disease. Distally, it supplies the PDA as well as the posterolateral branch. LVEDP: 10. IMPRESSIONS: 1. Non-ST elevation myocardial infarction type 2. 2. Mild coronary artery disease by cardiac catheterization. 3. Overdose on heroin per the patient. RECOMMENDATIONS: 1. Mr. Judge appears to have mild coronary artery disease and no significant disease to cause this elevated troponin. 2. Elevated troponin is most likely due to hypoxia at the time of overdose including CPR. 3. He will continue on medical management. 4. We will check a 2-D echo to look at his overall left ventricular function, cardiac structure and possible valvulopathies. 5. He will be watched overnight and if stable tomorrow, possible discharge home. 6. Overall, he understands that he needs to stop using all drugs including heroin, cocaine and marijuana. Thank you for allowing me to see Beltran Judge. If there are any questions, please do not hesitate to call. Alex Currie DO VGP/JENNI , 05:10 PM , 05:35 PM
[2017-12-21] MEDS: Senna/Docusate Sodium 8.6/50 MG Tablet PO SCH (21:33)
[2017-12-22] MEDS: Sod Chloride 0.9% Inj 1,000 ML IV.CONT SCH ×2 (04:24→10:09)
--- NOTE | 2017-12-22 06:37 | MB ---
cc: Alex Currie DO DATE: 12/21/2017 REASON FOR CONSULTATION: Elevated troponin. HISTORY OF PRESENT ILLNESS: Kamaljit Judge is a 37-year-old male who presented to [facility] Emergency Room due to chest pain. Apparently, the patient was having significant pain in his back and knees yesterday and so he took some unknown amount of heroin, which he shot up. Apparently, he accidentally overdosed and his friend did CPR on him. He was down for an unknown amount of time. No ambulance was called at that time and he did not come to the hospital. He has felt overall sick since that time and so he came to the emergency room. In seeing him, he is currently hemodynamically stable without chest pain or shortness of breath. In discussing with him, he states that he uses heroin occasionally. He smokes marijuana once or twice a week. He also uses cocaine multiple times per week. He states that he did not use cocaine yesterday and only used heroin. PAST MEDICAL HISTORY: Drug abuse, as above. PAST SURGICAL HISTORY: Knee surgery. ALLERGIES: NO KNOWN DRUG ALLERGIES. MEDICATIONS: Denies. FAMILY HISTORY: Denies premature coronary artery disease or sudden cardiac within the family. SOCIAL HISTORY: The patient smokes 1/2 pack of cigarettes a day. He drinks 2-4 times per month. He admits to IV heroin use, with his last use being yesterday. He also admits to using marijuana twice a week and cocaine multiple times throughout the week. REVIEW OF SYSTEMS: Fourteen systems were reviewed including osteopathic. Pertinent positives and negatives above, otherwise negative. PHYSICAL EXAMINATION: VITAL SIGNS: Temperature 97.8, heart rate 54, blood pressure 159/98, respirations 18, pulse oximetry 94% on room air. GENERAL: The patient appears well, in no acute distress. Alert, awake and oriented x 3. HEENT: Extraocular muscles intact. Mucous membranes moist. NECK: Supple. No JVD at 45 degrees. No carotid bruits heard bilaterally. Carotid upstroke is brisk in nature. HEART: Regular rate and rhythm. Positive first and second heart sounds with no noted murmurs, gallops or rubs. LUNGS: Clear to auscultation bilaterally. No wheezes, rales or rhonchi. ABDOMEN: Soft, nontender, and nondistended. No organomegaly noted. EXTREMITIES: Show no clubbing, cyanosis, or edema. Femoral and distal pulses are intact bilaterally. NEUROLOGIC: No focal deficits. SKIN: Warm, dry, and intact. OSTEOPATHIC: No kyphoscoliosis, lordosis, or paraspinal tender points. LABORATORY DATA: Hemoglobin 15.1, hematocrit 46.2, platelets 310. Potassium 4.5, BUN 10, creatinine 0.94. Troponin 2.54 and 2.59. UDS positive for cocaine and cannabis. Electrocardiogram (12/21/2017 at 0718): Sinus bradycardia, short MA interval, incomplete right bundle branch block. RECOMMENDATIONS: 1. Mr. Judge presented after an accidental overdose on heroin. He had an unknown downtime and received CPR. 2. He had an elevated troponin at 2.54 and will repeat a 2.59 one day after this event. Overall, his troponin may be elevated due to his downtime as well as a CPR but I feel that due to his chest pain, use of cocaine, which can accelerate coronary artery disease and the elevated troponins, he should undergo cardiac catheterization to rule out significant disease. 3. Risks, benefits, and alternatives have been explained to him and consents as such. 4. We will check a 2-D echo to look at his overall left ventricular function, cardiac structure and possible valvulopathies. 5. I discussed with him for greater than 3 minutes about tobacco abuse. I also discussed with him about his use of heroin and cocaine and the risks that are involved with these. Thank you for allowing me to see Beltran Judge. If there are any questions, please do not hesitate to call. Alex Currie, VGP/KD , 12:46 AM , 06:34 AM
[2017-12-22] MEDS: Famotidine 20 MG Tablet PO SCH (09:18)
[2017-12-22] MEDS: Enoxaparin Inj 80 MG/0.8 ML Syringe SQ SCH (09:18)
[2017-12-22] MEDS: Multivitamin/Minerals Therapeutic Tablet PO SCH (09:18)
[2017-12-22] MEDS: Senna/Docusate Sodium 8.6/50 MG Tablet PO SCH (09:18)
[2017-12-22] MEDS: Folic Acid 1 MG Tablet PO SCH (09:18)
[2017-12-22 09:48] LABS: Baso # (Auto) 0.1 th/mm3 (0.0-0.2); Eos # (Auto) 0.1 th/mm3 (0.0-0.4); Eos % (Auto) 1.9 % (0.0-4.0); Hematocrit 41.1 % (39.0-51.0); Hemoglobin 13.6 gm/dL (13.0-17.0); Lymph # (Auto) 1.4 th/mm3 (1.0-4.8); Lymph % (Auto) 19.3 % (9.0-44.0); Mean Corpuscular Hemoglobin 31.1 pg (27.0-34.0); Mean Corpuscular Volume 94.3 fL (80.0-100.0); Mean Platelet Volume 7.7 fL (7.0-11.0); Mono # (Auto) 0.6 th/mm3 (0.0-0.9); Mono % (Auto) 7.8 % (0.0-8.0); Platelet Count 251 th/mm3 (150-450); Red Blood Count 4.35 mil/mm3 (4.50-5.90); Red Cell Distribution Width 15.1 % (11.6-17.2); White Blood Count 7.1 th/mm3 (4.0-11.0)
[2017-12-22 09:54] LABS: INR 1.1 Ratio; Prothrombin Time 11.1 sec (9.8-11.6)
[2017-12-22 10:19] LABS: Alanine Aminotransferase 216 U/L (12-78); Albumin 2.8 g/dL (3.4-5.0); Anion Gap 11 meq/L (5-15); Aspartate Aminotransferase 165 U/L (15-37); Blood Urea Nitrogen 13 mg/dL (7-18); Calcium 8.5 mg/dL (8.5-10.1); Carbon Dioxide 24.9 meq/L (21.0-32.0); Chloride 105 meq/L (98-107); Cholesterol 100 mg/dL (120-200); Glomerular Filtration Rate 79 mL/min (>89); Glucose,Random 159 mg/dL (74-106); Magnesium 2.1 mg/dL (1.5-2.5); Potassium 3.8 meq/L (3.5-5.1); Sodium 141 meq/L (136-145)
[2017-12-22 10:23] LABS: Alkaline Phosphatase 50 U/L (45-117); Chol/HDL Ratio 2.84 Ratio; Free T4 (Free Thyroxine) 1.09 ng/dL (0.76-1.46); HDL Cholesterol 35.1 mg/dL (40.0-60.0); LDL Cholesterol,Calculated 43 mg/dL (0-99); Phosphorus 2.9 mg/dL (2.5-4.9); Total Protein 6.3 g/dL (6.4-8.2); Triglycerides 108 mg/dL (42-150)
--- NOTE | 2017-12-22 12:09 | P.PNIM ---
Subjective Interval history: Patient is a 37-year-old -[place] gentleman who presented to the [facility] emergency department with a history of chest pain, shortness of breath and questionable tongue swelling as well as bilateral knee pain since accidentally overdosing on heroin p.m. yesterday. He states that a friend did CPR on him. No ambulance was called at this time. Did not get any Narcan. He did not go to the hospital. Patient reports feeling poorly since that time has bilateral knee pain states he has had some previous abscesses on his knees. Patient has used heroin for about 3 years. States he does not use it on a regular basis. States he uses the heroin for back pain and knee pain. He states he does not have a regular doctor. Is also using marijuana and cocaine Was found to have positive troponins and therefore will be admitted for cardiology clearance which is more than likely secondary to his cocaine and heroin possible CPR. 7-10 had CARDIAC CATH YESTERDAY CLEAN CORONARIES DC TO HOME TODAY STOP ILLEGAL DRUGS STOP ALCOHOL, TOBACCO, COCAINE, HEROIN ETC POSITIVE FOR HEPATITIS C Physical Exam Vital signs: Vital Signs 12/21/17 13:45 12/21/17 14:07 12/21/17 16:00 Temperature 97.7 F 97.8 F 97.8 F Pulse Rate 83 54 L 56 L Respiratory Rate 16 18 18 Blood Pressure 161/86 H 159/98 H 131/95 H Pulse Oximetry 94 L 100 12/21/17 17:12 12/21/17 19:00 12/21/17 20:00 Temperature Pulse Rate 65 65 Respiratory Rate Blood Pressure Pulse Oximetry 99 12/21/17 20:24 12/21/17 20:29 12/21/17 21:00 Temperature 98.8 F Pulse Rate 62 72 Respiratory Rate 16 Blood Pressure 161/99 H Pulse Oximetry 100 100 12/21/17 22:00 12/21/17 23:00 12/22/17 00:00 Temperature 97.7 F Pulse Rate 54 L 69 70 Respiratory Rate 16 Blood Pressure 136/74 Pulse Oximetry 96 12/22/17 01:00 12/22/17 02:00 12/22/17 03:00 Temperature Pulse Rate 66 56 L 60 Respiratory Rate Blood Pressure Pulse Oximetry 12/22/17 04:00 12/22/17 05:00 12/22/17 06:00 Temperature 97.2 F L Pulse Rate 48 L 57 L 64 Respiratory Rate 16 Blood Pressure 163/96 H Pulse Oximetry 97 12/22/17 07:00 12/22/17 08:00 12/22/17 09:00 Temperature 98.0 F Pulse Rate 57 L 52 L 62 Respiratory Rate 16 Blood Pressure 168/98 H Pulse Oximetry 98 12/22/17 10:00 Temperature Pulse Rate 65 Respiratory Rate Blood Pressure Pulse Oximetry Intake & Output 12/21/17 12/22/17 12/22/17 18:59 06:59 18:59 Intake Total 1000 / 1000 1720 / 1720 Output Total 600 / 600 725 / 725 Balance 400 / 400 995 / 995 Weight 64.41 kg 64.4 kg Intake: IV 1000 / 1000 1000 / 1000 NS Inj 1,000 ML @ 100 mls/hr IV 1000 / 1000 .CONT .Q10H ADRIEN Rx#:[id number] NS Inj 1,000 ML @ Wide Open IV. 1000 / 1000 SIG BOLUS ONE Rx#:[id number] Oral 720 / 720 Output: Urine 600 / 600 725 / 725 Other: # Voids 1 Weight On Admission 64.41 kg Narrative: GENERAL: Awake alert and oriented 3 talkative and cooperative SKIN: Warm and dry. HEAD: Atraumatic. Normocephalic. EYES: Pupils equal and round. No scleral icterus. No injection or drainage. ENT: No nasal bleeding or discharge. Mucous membranes pink and moist. NECK: Trachea midline. No JVD. CARDIOVASCULAR: Regular rate and rhythm. S1-S2 no S3 or S4 RESPIRATORY: No accessory muscle use. Clear to auscultation. Breath sounds equal bilaterally. GASTROINTESTINAL: Abdomen soft, non-tender, nondistended. Hepatic and splenic margins not palpable. MUSCULOSKELETAL: Extremities without clubbing, cyanosis, or edema. No obvious deformities. NEUROLOGICAL: Awake and alert. No obvious cranial nerve deficits. Motor grossly within normal limits. Five out of 5 muscle strength in the arms and legs. Normal speech. PSYCHIATRIC: Appropriate mood and affect; insight and judgment normal. Results - Labs CBC & Chem 7: 12/22/17 09:33 12/22/17 09:33 Laboratory Results - last 24 hr 12/21/17 12/21/17 12/21/17 07:20 13:35 13:45 WBC RBC Hgb Hct MCV MCH MCHC RDW Plt Count MPV Neut % (Auto) Lymph % (Auto) Crisp % (Auto) Eos % (Auto) Baso % (Auto) Neut # (Auto) Lymph # (Auto) Crisp # (Auto) Eos # (Auto) Baso # (Auto) WBC Differential Differential Comment PT INR Sodium Potassium Chloride Carbon Dioxide Anion Gap BUN Creatinine Estimated GFR POC Glucose 89 Random Glucose Calcium Phosphorus Magnesium Total Bilirubin AST ALT Alkaline Phosphatase Total Creatine Kinase 90 Troponin I 2.59 H* Total Protein Albumin Triglycerides Cholesterol LDL Cholesterol, Calc HDL Cholesterol Cholesterol/HDL Ratio TSH Free T4 Urine Opiates Screen Neg Ur Barbiturates Screen Neg Ur Amphetamines Screen Neg U Benzodiazepines Scrn Neg Urine Cocaine Screen Pos U Cannabinoids Screen Pos Hepatitis A IgM Ab Hep Bs Antigen Hep B Core IgM Ab Hep C IgG Ab 12/21/17 12/22/17 12/22/17 13:45 09:33 09:33 WBC 7.1 RBC 4.35 L Hgb 13.6 Hct 41.1 MCV 94.3 MCH 31.1 MCHC 33.0 RDW 15.1 Plt Count 251 MPV 7.7 Neut % (Auto) 70.0 Lymph % (Auto) 19.3 Crisp % (Auto) 7.8 Eos % (Auto) 1.9 Baso % (Auto) 1.0 Neut # (Auto) 5.0 Lymph # (Auto) 1.4 Crisp # (Auto) 0.6 Eos # (Auto) 0.1 Baso # (Auto) 0.1 WBC Differential . Differential Comment Auto diff final PT 11.1 INR 1.1 Sodium Potassium Chloride Carbon Dioxide Anion Gap BUN Creatinine Estimated GFR POC Glucose Random Glucose Calcium Phosphorus Magnesium Total Bilirubin AST ALT Alkaline Phosphatase Total Creatine Kinase Troponin I Total Protein Albumin Triglycerides Cholesterol LDL Cholesterol, Calc HDL Cholesterol Cholesterol/HDL Ratio TSH Free T4 Urine Opiates Screen Ur Barbiturates Screen Ur Amphetamines Screen U Benzodiazepines Scrn Urine Cocaine Screen U Cannabinoids Screen Hepatitis A IgM Ab Nonreactive Hep Bs Antigen Nonreactive Hep B Core IgM Ab Nonreactive Hep C IgG Ab Reactive H 12/22/17 12/22/17 09:33 09:33 WBC RBC Hgb Hct MCV MCH MCHC RDW Plt Count MPV Neut % (Auto) Lymph % (Auto) Crisp % (Auto) Eos % (Auto) Baso % (Auto) Neut # (Auto) Lymph # (Auto) Crisp # (Auto) Eos # (Auto) Baso # (Auto) WBC Differential Differential Comment PT INR Sodium 141 Potassium 3.8 Chloride 105 D Carbon Dioxide 24.9 Anion Gap 11 BUN 13 Creatinine 1.25 Estimated GFR 79 L POC Glucose Random Glucose 159 H Calcium 8.5 D Phosphorus 2.9 Magnesium 2.1 Total Bilirubin 0.5 AST 165 H ALT 216 H Alkaline Phosphatase 50 Total Creatine Kinase Troponin I Total Protein 6.3 L Albumin 2.8 L Triglycerides 108 Cholesterol 100 L LDL Cholesterol, Calc 43 HDL Cholesterol 35.1 L Cholesterol/HDL Ratio 2.84 TSH 0.813 Free T4 1.09 Urine Opiates Screen Ur Barbiturates Screen Ur Amphetamines Screen U Benzodiazepines Scrn Urine Cocaine Screen U Cannabinoids Screen Hepatitis A IgM Ab Hep Bs Antigen Hep B Core IgM Ab Hep C IgG Ab - Imaging ITS Impressions Chest X-Ray 12/21/17 07:00 CONCLUSION: Negative examination. Head CT 12/21/17 07:00 CONCLUSION: 1. Negative CT Head non contrast. Knee X-Ray 12/21/17 07:06 CONCLUSION: Negative examination Knee X-Ray 12/21/17 07:06 CONCLUSION: Negative examination - Procedures 12/21/2017. PROCEDURE: Left heart catheterization, coronary angiogram, moderate sedation 15 minutes. PREPROCEDURE DIAGNOSIS: Chest pain, non-ST elevation myocardial infarction, overdose on heroin, history of cocaine use. POSTPROCEDURE DIAGNOSES: Mild coronary artery disease, type 2 [id number] myocardial infarction. MEDICATIONS: Versed 1 mg, nitro 200 mcg, heparin 2600 units. CONTRAST USED: 70 mL. FLUOROSCOPY: 4.8 minutes. MODERATE SEDATION: 15 minutes. FRAILTY SCORE: 2. ESTIMATED BLOOD LOSS: 10 mL. PROCEDURAL SUMMARY: Beltran Judge is a 37-year-old male who presented to [facility] 1 day overdosing on heroin. Apparently, he took heroin due to pain to the point where he overdosed. His friend did CPR. He did not come to the hospital. He has not felt well since then and so he presented to [facility] today. He was found to have an elevated troponin at 2.4 and a second troponin was still elevated at 2.9. As this was significant elevation of troponin for a 37-year-old, I felt that coronary artery disease needed to be ruled out. Specifically, with his history of cocaine use, which can accelerate coronary artery disease. The risks, benefits and alternatives were explained to him and he consented as such. He was brought to the lab and prepped in the usual sterile fashion. The right radial artery was accessed using a modified Seldinger technique and placement of a 5/6 [place] Slender Sheath. This is easily aspirated and flushed. A JR4 was advanced over a J-wire to the ascending aorta and across the aortic valve for measurement of left ventricular pressure. This was pulled back across the aortic valve showing no significant gradient of aortic stenosis. JR4 was used for selective angiography of the right coronary artery system. This is exchanged out for a JL3.5, which was used for selective angiography of the left coronary artery system. The JL3.5 was removed over a J wire. A radial band was placed over the arteriotomy site for hemostasis. 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 FINDINGS: LEFT MAIN: A large vessel with a superior takeoff. No significant disease. It trifurcates into an LAD, ramus and circumflex. LAD: Moderate to large vessel with mild luminal irregularities throughout the proximal and mid-portion. It supplies two major diagonals with no significant disease. RAMUS: Moderate-sized vessel with no significant disease. It bifurcates into an upper and lower branch. LEFT CIRCUMFLEX: Moderate-sized vessel with mild luminal irregularities in the proximal portion. Distally it supplies two obtuse marginals with no significant disease. RCA: High anterior takeoff. Moderate-sized vessel. No significant disease. Distally, it supplies the PDA as well as the posterolateral branch. LVEDP: 10. IMPRESSIONS: 1. Non-ST elevation myocardial infarction type 2. 2. Mild coronary artery disease by cardiac catheterization. 3. Overdose on heroin per the patient. RECOMMENDATIONS: 1. Mr. Judge appears to have mild coronary artery disease and no significant disease to cause this elevated troponin. 2. Elevated troponin is most likely due to hypoxia at the time of overdose including CPR. 3. He will continue on medical management. 4. We will check a 2-D echo to look at his overall left ventricular function, cardiac structure and possible valvulopathies. 5. He will be watched overnight and if stable tomorrow, possible discharge home. 6. Overall, he understands that he needs to stop using all drugs including heroin, cocaine and marijuana. Thank you for allowing me to see Beltran Judge. If there are any questions, please do not hesitate to call. Alex Currie, DO Assessment and Plan - Plan Positive troponins suspect secondary to cocaine and heroin use and possible CPR Elevated LFTs suspect hepatitis C versus secondary to drug use Positive for hepatitis C Medical noncompliance Tobacco abuse recommend smoking cessation Marijuana abuse recommend marijuana cessation Cocaine abuse recommend smoking cessation Heroin abuse recommend heroin cessation Recommend that patient seek employment and find something to keep him busy other than drugs We will trend troponins and cardiac enzymes We will consult cardiology for their opinion We will get an echocardiogram We will get a.m. labs We will continue on multivitamin, thiamine, folic acid as well as get a.m. labs and trend troponins and cardiac enzymes and trend hepatitis panel We will continue on GI prophylaxis with Pepcid and continue on DVT prophylaxis with Lovenox full dose 70 mg subcu twice daily Discharge to home today Code Status: FULL CODE Discussed Condition With: RN AND PT Discharge Planning: Hopefully home and hopefully to stop all illegal drugs and seek employment
--- NOTE | 2017-12-22 12:22 | P.DS ---
Date of admission: 12/21/17 12:48 Primary care physician: No Primary Care Physician Attending physician on discharge: Gil Bray Anticipated date of discharge: 12/22/17 Brief History from admission: Patient is a 37-year-old -[place] gentleman who presented to the [place] emergency department with a history of chest pain, shortness of breath and questionable tongue swelling as well as bilateral knee pain since accidentally overdosing on heroin p.m. yesterday. He states that a friend did CPR on him. No ambulance was called at this time. Did not get any Narcan. He did not go to the hospital. Patient reports feeling poorly since that time has bilateral knee pain states he has had some previous abscesses on his knees. Patient has used heroin for about 3 years. States he does not use it on a regular basis. States he uses the heroin for back pain and knee pain. He states he does not have a regular doctor. Is also using marijuana and cocaine Was found to have positive troponins and therefore will be admitted for cardiology clearance which is more than likely secondary to his cocaine and heroin possible CPR. DS: Diagnosis - Discharge Diagnosis (1) NSTEMI (non-ST elevated myocardial infarction) Status: Acute (2) Hepatitis C Status: Chronic (3) IVDU (intravenous drug user) Status: Chronic (4) Elevated liver enzymes Status: Chronic (5) Elevated troponin Status: Acute (6) Opiate overdose Status: Acute (7) Overdose of opiate or related narcotic Status: Chronic (8) H/O knee surgery Status: Chronic DS: Medications - Discharge Medications Prescriptions: aspirin [Adult Low Dose Aspirin] 1 mg/kg PO DAILY #30 tab famotidine 20 mg PO BID #60 tab folic acid 1 mg PO DAILY #30 tab tugqjzon-ellx-FG-calcium-mins [Thera M Plus (ferrous fumarat)] 1 tab PO DAILY # 30 tab sennosides-docusate sodium [Senna Plus] 2 tab PO BID #120 tab DS: Summary Hospital Course: Patient is a 37-year-old -[place] gentleman who presented to the [place] emergency department with a history of chest pain, shortness of breath and questionable tongue swelling as well as bilateral knee pain since accidentally overdosing on heroin p.m. yesterday. He states that a friend did CPR on him. No ambulance was called at this time. Did not get any Narcan. He did not go to the hospital. Patient reports feeling poorly since that time has bilateral knee pain states he has had some previous abscesses on his knees. Patient has used heroin for about 3 years. States he does not use it on a regular basis. States he uses the heroin for back pain and knee pain. He states he does not have a regular doctor. Is also using marijuana and cocaine Was found to have positive troponins and therefore will be admitted for cardiology clearance which is more than likely secondary to his cocaine and heroin possible CPR. 7-10 had CARDIAC CATH YESTERDAY CLEAN CORONARIES DC TO HOME TODAY STOP ILLEGAL DRUGS STOP ALCOHOL, TOBACCO, COCAINE, HEROIN ETC POSITIVE FOR HEPATITIS C - Time Spent with Patient Total time spent providing and/or coordinating discharge services: Greater than 30 minutes - Quality: AMI Clinical Trial Participant: No Contraindication-Statin: Contraindicated (ELEVATED LFTS DUE TO HEPATITIS C POSITIVE) - Quality: VTE Deep Vein Thrombosis/Pulmonary Embolism Present on Admission: No Exam Vital signs: Vital Signs 12/21/17 13:45 12/21/17 14:07 12/21/17 16:00 Temperature 97.7 F 97.8 F 97.8 F Pulse Rate 83 54 L 56 L Respiratory Rate 16 18 18 Blood Pressure 161/86 H 159/98 H 131/95 H Pulse Oximetry 94 L 100 12/21/17 17:12 12/21/17 19:00 12/21/17 20:00 Temperature Pulse Rate 65 65 Respiratory Rate Blood Pressure Pulse Oximetry 99 12/21/17 20:24 12/21/17 20:29 12/21/17 21:00 Temperature 98.8 F Pulse Rate 62 72 Respiratory Rate 16 Blood Pressure 161/99 H Pulse Oximetry 100 100 12/21/17 22:00 12/21/17 23:00 12/22/17 00:00 Temperature 97.7 F Pulse Rate 54 L 69 70 Respiratory Rate 16 Blood Pressure 136/74 Pulse Oximetry 96 12/22/17 01:00 12/22/17 02:00 12/22/17 03:00 Temperature Pulse Rate 66 56 L 60 Respiratory Rate Blood Pressure Pulse Oximetry 12/22/17 04:00 12/22/17 05:00 12/22/17 06:00 Temperature 97.2 F L Pulse Rate 48 L 57 L 64 Respiratory Rate 16 Blood Pressure 163/96 H Pulse Oximetry 97 12/22/17 07:00 12/22/17 08:00 12/22/17 09:00 Temperature 98.0 F Pulse Rate 57 L 52 L 62 Respiratory Rate 16 Blood Pressure 168/98 H Pulse Oximetry 98 12/22/17 10:00 Temperature Pulse Rate 65 Respiratory Rate Blood Pressure Pulse Oximetry Intake & Output 12/21/17 12/22/17 12/22/17 18:59 06:59 18:59 Intake Total 1000 / 1000 1720 / 1720 Output Total 600 / 600 725 / 725 Balance 400 / 400 995 / 995 Weight 64.41 kg 64.4 kg Intake: IV 1000 / 1000 1000 / 1000 NS Inj 1,000 ML @ 100 mls/hr IV 1000 / 1000 .CONT .Q10H [facility] Rx#:[id number] NS Inj 1,000 ML @ Wide Open IV. 1000 / 1000 SIG BOLUS ONE Rx#:[id number] Oral 720 / 720 Output: Urine 600 / 600 725 / 725 Other: # Voids 1 Weight On Admission 64.41 kg Narrative: GENERAL: Awake alert and oriented 3 talkative and cooperative SKIN: Warm and dry. HEAD: Atraumatic. Normocephalic. EYES: Pupils equal and round. No scleral icterus. No injection or drainage. ENT: No nasal bleeding or discharge. Mucous membranes pink and moist. NECK: Trachea midline. No JVD. CARDIOVASCULAR: Regular rate and rhythm. S1-S2 no S3 or S4 RESPIRATORY: No accessory muscle use. Clear to auscultation. Breath sounds equal bilaterally. GASTROINTESTINAL: Abdomen soft, non-tender, nondistended. Hepatic and splenic margins not palpable. MUSCULOSKELETAL: Extremities without clubbing, cyanosis, or edema. No obvious deformities. NEUROLOGICAL: Awake and alert. No obvious cranial nerve deficits. Motor grossly within normal limits. Five out of 5 muscle strength in the arms and legs. Normal speech. PSYCHIATRIC: Appropriate mood and affect; insight and judgment normal. Results Procedures completed during hospitalization: 12/21/2017. PROCEDURE: Left heart catheterization, coronary angiogram, moderate sedation 15 minutes. PREPROCEDURE DIAGNOSIS: Chest pain, non-ST elevation myocardial infarction, overdose on heroin, history of cocaine use. POSTPROCEDURE DIAGNOSES: Mild coronary artery disease, type 2 [id number] myocardial infarction. MEDICATIONS: Versed 1 mg, nitro 200 mcg, heparin 2600 units. CONTRAST USED: 70 mL. FLUOROSCOPY: 4.8 minutes. MODERATE SEDATION: 15 minutes. FRAILTY SCORE: 2. ESTIMATED BLOOD LOSS: 10 mL. PROCEDURAL SUMMARY: Beltran Judge is a 37-year-old male who presented to [facility] 1 day overdosing on heroin. Apparently, he took heroin due to pain to the point where he overdosed. His friend did CPR. He did not come to the hospital. He has not felt well since then and so he presented to [facility] today. He was found to have an elevated troponin at 2.4 and a second troponin was still elevated at 2.9. As this was significant elevation of troponin for a 37-year-old, I felt that coronary artery disease needed to be ruled out. Specifically, with his history of cocaine use, which can accelerate coronary artery disease. The risks, benefits and alternatives were explained to him and he consented as such. He was brought to the lab and prepped in the usual sterile fashion. The right radial artery was accessed using a modified Seldinger technique and placement of a 5/6 [place]ender [place]ath. This is easily aspirated and flushed. A JR4 was advanced over a J-wire to the ascending aorta and across the aortic valve for measurement of left ventricular pressure. This was pulled back across the aortic valve showing no significant gradient of aortic stenosis. JR4 was used for selective angiography of the right coronary artery system. This is exchanged out for a JL3.5, which was used for selective angiography of the left coronary artery system. The JL3.5 was removed over a J wire. A radial band was placed over the arteriotomy site for hemostasis. 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 FINDINGS: LEFT MAIN: A large vessel with a superior takeoff. No significant disease. It trifurcates into an LAD, ramus and circumflex. LAD: Moderate to large vessel with mild luminal irregularities throughout the proximal and mid-portion. It supplies two major diagonals with no significant disease. RAMUS: Moderate-sized vessel with no significant disease. It bifurcates into an upper and lower branch. LEFT CIRCUMFLEX: Moderate-sized vessel with mild luminal irregularities in the proximal portion. Distally it supplies two obtuse marginals with no significant disease. RCA: High anterior takeoff. Moderate-sized vessel. No significant disease. Distally, it supplies the PDA as well as the posterolateral branch. LVEDP: 10. IMPRESSIONS: 1. Non-ST elevation myocardial infarction type 2. 2. Mild coronary artery disease by cardiac catheterization. 3. Overdose on heroin per the patient. RECOMMENDATIONS: 1. Mr. Judge appears to have mild coronary artery disease and no significant disease to cause this elevated troponin. 2. Elevated troponin is most likely due to hypoxia at the time of overdose including CPR. 3. He will continue on medical management. 4. We will check a 2-D echo to look at his overall left ventricular function, cardiac structure and possible valvulopathies. 5. He will be watched overnight and if stable tomorrow, possible discharge home. 6. Overall, he understands that he needs to stop using all drugs including heroin, cocaine and marijuana. Thank you for allowing me to see Beltran Judge. If there are any questions, please do not hesitate to call. Alex Currie, DO Completed studies during hospitalization: Laboratory Results WBC 7.1 th/mm3 (4.0-11.0) 12/22/17 09:33 RBC 4.35 mil/mm3 (4.50-5.90) L 12/22/17 09:33 Hgb 13.6 gm/dL (13.0-17.0) 12/22/17 09:33 Hct 41.1 % (39.0-51.0) 12/22/17 09:33 MCV 94.3 fL (80.0-100.0) 12/22/17 09:33 MCH 31.1 pg (27.0-34.0) 12/22/17 09:33 MCHC 33.0 % (32.0-36.0) 12/22/17 09:33 RDW 15.1 % (11.6-17.2) 12/22/17 09:33 Plt Count 251 th/mm3 (150-450) 12/22/17 09:33 MPV 7.7 fL (7.0-11.0) 12/22/17 09:33 Neut % (Auto) 70.0 % (16.0-70.0) 12/22/17 09:33 Lymph % (Auto) 19.3 % (9.0-44.0) 12/22/17 09:33 [place] % (Auto) 7.8 % (0.0-8.0) 12/22/17 09:33 Eos % (Auto) 1.9 % (0.0-4.0) 12/22/17 09:33 Baso % (Auto) 1.0 % (0.0-2.0) 12/22/17 09:33 Neut # (Auto) 5.0 th/mm3 (1.8-7.7) 12/22/17 09:33 Lymph # (Auto) 1.4 th/mm3 (1.0-4.8) 12/22/17 09:33 [place] # (Auto) 0.6 th/mm3 (0.0-0.9) 12/22/17 09:33 Eos # (Auto) 0.1 th/mm3 (0.0-0.4) 12/22/17 09:33 Baso # (Auto) 0.1 th/mm3 (0.0-0.2) 12/22/17 09:33 WBC Differential . 12/22/17 09:33 Differential Comment Auto diff final 12/22/17 09:33 PT 11.1 sec (9.8-11.6) 12/22/17 09:33 INR 1.1 Ratio 12/22/17 09:33 APTT 24.3 sec (24.3-30.1) 12/21/17 07:02 Sodium 141 meq/L (136-145) 12/22/17 09:33 Potassium 3.8 meq/L (3.5-5.1) 12/22/17 09:33 Chloride 105 meq/L (98-107) D 12/22/17 09:33 Carbon Dioxide 24.9 meq/L (21.0-32.0) 12/22/17 09:33 Anion Gap 11 meq/L (5-15) 12/22/17 09:33 BUN 13 mg/dL (7-18) 12/22/17 09:33 Creatinine 1.25 mg/dL (0.60-1.30) 12/22/17 09:33 Estimated GFR 79 mL/min (>89) L 12/22/17 09:33 POC Glucose 89 mg/dl (68-110) 12/21/17 13:35 Random Glucose 159 mg/dL (74-106) H 12/22/17 09:33 Calcium 8.5 mg/dL (8.5-10.1) D 12/22/17 09:33 Prot Corrected Calcium 7.4 mg/dL (8.5-10.1) L* 12/21/17 07:02 Phosphorus 2.9 mg/dL (2.5-4.9) 12/22/17 09:33 Magnesium 2.1 mg/dL (1.5-2.5) 12/22/17 09:33 Total Bilirubin 0.5 mg/dL (0.2-1.0) 12/22/17 09:33 AST 165 U/L (15-37) H 12/22/17 09:33 ALT 216 U/L (12-78) H 12/22/17 09:33 Alkaline Phosphatase 50 U/L (45-117) 12/22/17 09:33 Lactate Dehydrogenase 462 U/L (87-241) H 12/21/17 07:02 Total Creatine Kinase 90 U/L (39-308) 12/21/17 13:45 Troponin I 2.59 ng/mL (0.02-0.05) H* 12/21/17 13:45 B-Natriuretic Peptide 27 pg/mL (0-100) 12/21/17 07:02 Total Protein 6.3 g/dL (6.4-8.2) L 12/22/17 09:33 Albumin 2.8 g/dL (3.4-5.0) L 12/22/17 09:33 Triglycerides 108 mg/dL (42-150) 12/22/17 09:33 Cholesterol 100 mg/dL (120-200) L 12/22/17 09:33 LDL Cholesterol, Calc 43 mg/dL (0-99) 12/22/17 09:33 HDL Cholesterol 35.1 mg/dL (40.0-60.0) L 12/22/17 09:33 Cholesterol/HDL Ratio 2.84 Ratio 12/22/17 09:33 TSH 0.813 uIU/mL (0.358-3.740) 12/22/17 09:33 Free T4 1.09 ng/dL (0.76-1.46) 12/22/17 09:33 Urine Color Yellow (Yellw/Straw) 12/21/17 07:20 Urine Clarity Clear (Clear) 12/21/17 07:20 Urine pH 6.0 (5.0-8.5) 12/21/17 07:20 Ur Specific [place] 1.018 (1.002-1.035) 12/21/17 07:20 Urine Protein Negative mg/dL (Neg-Trace) 12/21/17 07:20 Urine Glucose (UA) Negative mg/dL (Negative) 12/21/17 07:20 Urine Ketones Negative mg/dL (Negative) 12/21/17 07:20 Urine Occult Blood Negative (Negative) 12/21/17 07:20 Urine Nitrate Negative (Negative) 12/21/17 07:20 Urine Bilirubin Negative (Negative) 12/21/17 07:20 Urine Urobilinogen 4 or greater mg/dL (Less than 2) 12/21/17 07:20 Ur Leukocyte Esterase Negative (Negative) 12/21/17 07:20 Urine RBC 1 /hpf (0-3) 12/21/17 07:20 Urine WBC 1 /hpf (0-5) 12/21/17 07:20 Urine Mucus Few /lpf (Occasional) H 12/21/17 07:20 Micro UA Comment Culture not ind 12/21/17 07:20 Urine Culture Comments Culture not ind 12/21/17 07:20 Urine Opiates Screen Neg (Neg) 12/21/17 07:20 Acetaminophen Less than 2.0 mcg/mL (10.0-30.0) L 12/21/17 07:02 Ur Barbiturates Screen Neg (Neg) 12/21/17 07:20 Ur Amphetamines Screen Neg (Neg) 12/21/17 07:20 U Benzodiazepines Scrn Neg (Neg) 12/21/17 07:20 Urine Cocaine Screen Pos (Neg) 12/21/17 07:20 U Cannabinoids Screen Pos (Neg) 12/21/17 07:20 Serum Alcohol Less than 3 mg/dL (0-5) 12/21/17 07:02 Hepatitis A IgM Ab Nonreactive (Nonreactive) 12/21/17 13:45 Hep Bs Antigen Nonreactive (Nonreactive) 12/21/17 13:45 Hep B Core IgM Ab Nonreactive (Nonreactive) 12/21/17 13:45 Hep C IgG Ab Reactive (Nonreactive) H 12/21/17 13:45 Impressions Chest X-Ray 12/21/17 07:00 CONCLUSION: Negative examination. Head CT 12/21/17 07:00 CONCLUSION: 1. Negative CT Head non contrast. Knee X-Ray 12/21/17 07:06 CONCLUSION: Negative examination Labs on day of discharge: Labs from last 24 hours 12/22/17 12/22/17 12/22/17 09:33 09:33 09:33 WBC RBC Hgb Hct MCV MCH MCHC RDW Plt Count MPV Neut % (Auto) Lymph % (Auto) [place] % (Auto) Eos % (Auto) Baso % (Auto) Neut # (Auto) Lymph # (Auto) [place] # (Auto) Eos # (Auto) Baso # (Auto) WBC Differential Differential Comment PT INR Sodium 141 Potassium 3.8 Chloride 105 D Carbon Dioxide 24.9 Anion Gap 11 BUN 13 Creatinine 1.25 Estimated GFR 79 L POC Glucose Random Glucose 159 H Hemoglobin A1c Pending Calcium 8.5 D Phosphorus 2.9 Magnesium 2.1 Total Bilirubin 0.5 AST 165 H ALT 216 H Alkaline Phosphatase 50 Total Creatine Kinase Troponin I Total Protein 6.3 L Albumin 2.8 L Triglycerides 108 Cholesterol 100 L LDL Cholesterol, Calc 43 HDL Cholesterol 35.1 L Cholesterol/HDL Ratio 2.84 TSH 0.813 Free T4 1.09 Urine Opiates Screen Ur Barbiturates Screen Ur Amphetamines Screen U Benzodiazepines Scrn Urine Cocaine Screen U Cannabinoids Screen Hepatitis A IgM Ab Hep Bs Antigen Hep B Core IgM Ab Hep C IgG Ab 12/22/17 12/22/17 12/21/17 09:33 09:33 13:45 WBC 7.1 RBC 4.35 L Hgb 13.6 Hct 41.1 MCV 94.3 MCH 31.1 MCHC 33.0 RDW 15.1 Plt Count 251 MPV 7.7 Neut % (Auto) 70.0 Lymph % (Auto) 19.3 [place] % (Auto) 7.8 Eos % (Auto) 1.9 Baso % (Auto) 1.0 Neut # (Auto) 5.0 Lymph # (Auto) 1.4 [place] # (Auto) 0.6 Eos # (Auto) 0.1 Baso # (Auto) 0.1 WBC Differential . Differential Comment Auto diff final PT 11.1 INR 1.1 Sodium Potassium Chloride Carbon Dioxide Anion Gap BUN Creatinine Estimated GFR POC Glucose Random Glucose Hemoglobin A1c Calcium Phosphorus Magnesium Total Bilirubin AST ALT Alkaline Phosphatase Total Creatine Kinase Troponin I Total Protein Albumin Triglycerides Cholesterol LDL Cholesterol, Calc HDL Cholesterol Cholesterol/HDL Ratio TSH Free T4 Urine Opiates Screen Ur Barbiturates Screen Ur Amphetamines Screen U Benzodiazepines Scrn Urine Cocaine Screen U Cannabinoids Screen Hepatitis A IgM Ab Nonreactive Hep Bs Antigen Nonreactive Hep B Core IgM Ab Nonreactive Hep C IgG Ab Reactive H 12/21/17 12/21/17 12/21/17 13:45 13:35 07:20 WBC RBC Hgb Hct MCV MCH MCHC RDW Plt Count MPV Neut % (Auto) Lymph % (Auto) [place] % (Auto) Eos % (Auto) Baso % (Auto) Neut # (Auto) Lymph # (Auto) [place] # (Auto) Eos # (Auto) Baso # (Auto) WBC Differential Differential Comment PT INR Sodium Potassium Chloride Carbon Dioxide Anion Gap BUN Creatinine Estimated GFR POC Glucose 89 Random Glucose Hemoglobin A1c Calcium Phosphorus Magnesium Total Bilirubin AST ALT Alkaline Phosphatase Total Creatine Kinase 90 Troponin I 2.59 H* Total Protein Albumin Triglycerides Cholesterol LDL Cholesterol, Calc HDL Cholesterol Cholesterol/HDL Ratio TSH Free T4 Urine Opiates Screen Neg Ur Barbiturates Screen Neg Ur Amphetamines Screen Neg U Benzodiazepines Scrn Neg Urine Cocaine Screen Pos U Cannabinoids Screen Pos Hepatitis A IgM Ab Hep Bs Antigen Hep B Core IgM Ab Hep C IgG Ab - Impressions ITS Impressions Chest X-Ray 12/21/17 07:00 CONCLUSION: Negative examination. Head CT 12/21/17 07:00 CONCLUSION: 1. Negative CT Head non contrast. Knee X-Ray 12/21/17 07:06 CONCLUSION: Negative examination Discharge Plan - Discharge Disposition Patient Disposition: 01 Discharge Home - Discharge Condition Condition: Good - Discharge Order Discharge Orders: Discharge Order (Routine); Ordered 12/22/17 Ordered By: Gil Bray - Discharge Details Anticipated Discharge Date: 12/22/17 Discharge Comment: [place] HOME - Physicians Team Primary Care Provider: Primary Care Physici,No Attending Provider: Gil Bray Other Providers: Alex Currie DO
--- NOTE | 2017-12-22 13:53 | P.PNCA ---
Subjective Interval history: No events overnight Feels well Physical Exam Vital signs: Vital Signs 12/21/17 14:07 12/21/17 16:00 12/21/17 17:12 Temperature 97.8 F 97.8 F Pulse Rate 54 L 56 L Respiratory Rate 18 18 Blood Pressure 159/98 H 131/95 H Pulse Oximetry 94 L 100 99 12/21/17 19:00 12/21/17 20:00 12/21/17 20:24 Temperature Pulse Rate 65 65 Respiratory Rate Blood Pressure Pulse Oximetry 100 12/21/17 20:29 12/21/17 21:00 12/21/17 22:00 Temperature 98.8 F Pulse Rate 62 72 54 L Respiratory Rate 16 Blood Pressure 161/99 H Pulse Oximetry 100 12/21/17 23:00 12/22/17 00:00 12/22/17 01:00 Temperature 97.7 F Pulse Rate 69 70 66 Respiratory Rate 16 Blood Pressure 136/74 Pulse Oximetry 96 12/22/17 02:00 12/22/17 03:00 12/22/17 04:00 Temperature 97.2 F L Pulse Rate 56 L 60 48 L Respiratory Rate 16 Blood Pressure 163/96 H Pulse Oximetry 97 12/22/17 05:00 12/22/17 06:00 12/22/17 07:00 Temperature Pulse Rate 57 L 64 57 L Respiratory Rate Blood Pressure Pulse Oximetry 12/22/17 08:00 12/22/17 09:00 12/22/17 10:00 Temperature 98.0 F Pulse Rate 52 L 62 65 Respiratory Rate 16 Blood Pressure 168/98 H Pulse Oximetry 98 12/22/17 11:00 12/22/17 12:00 12/22/17 13:00 Temperature 97.8 F 97.8 F Pulse Rate 71 71 78 Respiratory Rate 16 16 Blood Pressure 153/86 H 153/86 H Pulse Oximetry 97 97 Intake & Output 12/21/17 12/22/17 12/22/17 18:59 06:59 18:59 Intake Total 1000 / 1000 1720 / 1720 Output Total 600 / 600 725 / 725 Balance 400 / 400 995 / 995 Weight 64.41 kg 64.4 kg Intake: IV 1000 / 1000 1000 / 1000 NS Inj 1,000 ML @ 100 mls/hr IV 1000 / 1000 .CONT .Q10H [facility] Rx#:[id number] NS Inj 1,000 ML @ Wide Open IV. 1000 / 1000 SIG BOLUS ONE Rx#:[id number] Oral 720 / 720 Output: Urine 600 / 600 725 / 725 Other: # Voids 1 Weight On Admission 64.41 kg Narrative: GENERAL: Awake alert and oriented 3 talkative and cooperative SKIN: Warm and dry. HEAD: Atraumatic. Normocephalic. EYES: Pupils equal and round. No scleral icterus. No injection or drainage. ENT: No nasal bleeding or discharge. Mucous membranes pink and moist. NECK: Trachea midline. No JVD. CARDIOVASCULAR: Regular rate and rhythm. S1-S2 no S3 or S4 RESPIRATORY: No accessory muscle use. Clear to auscultation. Breath sounds equal bilaterally. GASTROINTESTINAL: Abdomen soft, non-tender, nondistended. Hepatic and splenic margins not palpable. MUSCULOSKELETAL: Extremities without clubbing, cyanosis, or edema. No obvious deformities. NEUROLOGICAL: Awake and alert. No obvious cranial nerve deficits. Motor grossly within normal limits. Five out of 5 muscle strength in the arms and legs. Normal speech. PSYCHIATRIC: Appropriate mood and affect; insight and judgment normal. Assessment and Plan - Assessment (1) NSTEMI (non-ST elevated myocardial infarction) Code(s): I21.4 - Non-ST elevation (NSTEMI) myocardial infarction Status: Acute (2) Opiate overdose Code(s): T40.601A - Poisoning by unspecified narcotics, accidental ( unintentional), initial encounter Status: Acute (3) Hepatitis C Code(s): B19.20 - Unspecified viral hepatitis C without hepatic coma Status: Chronic (4) IVDU (intravenous drug user) Code(s): F19.90 - Other psychoactive substance use, unspecified, uncomplicated Status: Chronic (5) Overdose of opiate or related narcotic Code(s): T40.601A - Poisoning by unspecified narcotics, accidental ( unintentional), initial encounter Status: Chronic - Plan 1) NSTEMI Cardiac cath showing no significant disease 2) Heroine overdose 3) Cocaine abuse 4) Marijuana use 5) Tobacco abuse Tobacco cessation 6) EF 50-55% 7) Cardiovascularly stable for discharge Progress Note: Quality - AMI Clinical Trial Participant: No Contraindication for Statin: Contraindicated (ELEVATED LFTS DUE TO HEPATITIS C POSITIVE) (2) Opiate overdose Qualifiers: Encounter type: initial encounter Injury intent: accidental or unintentional Qualified Code(s): T40.601A - Poisoning by unspecified narcotics, accidental ( unintentional), initial encounter
[2017-12-22 16:35] LABS: Hemoglobin A1c 5.2 % (4.3-6.0)
--- NOTE | 2017-12-22 16:53 | ECG ---
Date Performed: 12/21/2017 Time Performed: 22:00:24 PTAGE: 37 years EKG: Sinus bradycardia Short MN interval Borderline ECG PREVIOUS TRACING : 12/21/2017 07.18 Since the previous tracing, no significant change noted DOCTOR: Beatriz Berkowitz Interpretating Date/Time 12/22/2017 16:53:10
== END 2017-12-22 13:51 | disposition home or self-care (01) ==
LOC: NEPE 02:37 → NEDA 02:37 → NEPGCP 13:45 → HCIS 16:21
PROVIDERS: ADMIT Hospitalist; ATTEND Hospitalist